=== PATIENT | female | born 1945 | race Caucasian/White ===

== ENCOUNTER 2019-11-22 14:51 | Outpatient (CLI) | payer MEDICARE, SELFPAY ==
--- NOTE | ~2019-11-22 | MM_ITS ---
EXAMINATION: MM screening philippe BI w amelia HISTORY: Screening mammogram TECHNIQUE: Craniocaudal and mediolateral oblique 3-D tomosynthesis images were obtained and synthetic 2-D images were generated. CAD analysis was submitted and interpreted. COMPARISON: No prior mammogram is available for comparison at this institution. BREAST PARENCHYMAL COMPOSITION: The breasts are almost entirely fatty. FINDINGS: Scattered benign-appearing calcifications are present. There is no evidence of suspicious m ass, calcification, or architectural distortion to suggest malignancy in either breast. IMPRESSION: 1. No mammographic evidence of malignancy. 2. Recommend routine screening mammography in one year. BI-RADS Category 2: Benign finding(s). Reviewed, dictated and finalized at location A. [place] [employer]
== END 2019-11-22 14:52 | disposition home or self-care (01) ==
LOC: ANHIMG 14:54
PROVIDERS: PCP Internal Medicine; Visit Provider Internal Medicine
DX: Z12.31 Encounter for screening mammogram for malignant neoplasm of breast (principal)
CPT/HCPCS: 77063; 77067

== ENCOUNTER 2019-11-22 14:54 | Outpatient (CLI) | payer MEDICARE, SELFPAY ==
--- NOTE | ~2019-11-22 | DEXA_ITS ---
Bone Density Report Name: BREEZY MUHAMMAD Age: 74 Sex: Female Ethnicity: White Date of : 1945 Indication: postmenopausal; Referring Provider: YAYA LIVINGSTON Study: Bone densitometry was performed. Exam Date: November 22, 2019 Accession number: [id number] Bone Density: Region BMD T-score Z-score Classification AP Spine (L1-L4) 0.865 -1.7 0.6 Osteopenia Femoral Neck (Left) 0.592 -2.3 -0.4 Osteopenia Total Hip (Left) 0.764 -1.5 0.2 Osteopenia Total Hip Bilateral Avg 0.790 -1.3 0.4 Osteopenia Femoral Neck (Right) 0.635 -1.9 0.0 Osteopenia Total Hip (Right) 0.815 -1.0 0.6 Normal World Health Organization criteria for BMD impression classify patients as: Normal (T-score at or above -1.0), Osteopenia (T-score between -1.0 and -2.5), or Osteoporosis (T-score at or below -2.5). 10-year Fracture Risk(1): Major Osteoporotic Fracture 13% Hip Fracture 3.0% Reported Risk Factors: [place] (), Neck BMD=0.592, BMI=35.1 (1) FRAX(R) Version 3.08. Fracture probability calculated for an untreated patient. Fracture probability may be lower if the patient has received treatment. Clinical Information Provided by Patient: Has used the following medications: Vitamin D, Calcium Patient maximum height was 62 Menopause Age: 42 No regular weight bearing exercise Drinks caffeinated beverages Onset of menses at age 14 Number of children 0 Impression: The patient has low bone mass, based on the Left Femoral Neck T-score. The patient has an estimated ten-year risk of hip fracture of 3% and an estimated ten-year risk of major fracture of 13%, based on the WHO FRAX algorithm. Discussion: BONE DENSITY IS LOW AT ONE OR MORE SKELETAL SITES. THE PATIENT'S BMD AND CLINICAL RISK FACTORS CONTRIBUTE TO THIS PATIENT'S INCREASED RISK OF FRACTURE. This patient's lowest T-score is low at one or more skeletal sites. It meets the World Health Organization's (WHO) criteria for ?low bone mass? (T-score between -1.0 and -2.5). The patient's 10-year risk of hip fracture as calculated by FRAX exceeds the threshold where pharmacological therapy is recommended by the National Osteoporosis Foundation (NOF). However, all treatment decisions require clinical judgment and consideration of individual patient factors, including patient preferences, comorbidities, previous drug use, risk factors not captured in the FRAX model (e.g., frailty, falls, vitamin D deficiency, increased bone turnover, interval significant decline in bone density) and possible under or overestimation of fracture risk by FRAX. The patient should follow a healthful lifestyle (good nutrition with adequate calcium and vitamin D, and appropriate weight-bearing exercise). Follow-Up: Consider a repeat BMD and Vertebral Fracture Assessment (VFA) exam in 2 years or sooner if
== END 2019-11-22 14:55 | disposition home or self-care (01) ==
LOC: ANHIMG 14:55
PROVIDERS: PCP Internal Medicine; Visit Provider Internal Medicine
DX: Z12.31 Encounter for screening mammogram for malignant neoplasm of breast (principal); Z78.0 Asymptomatic menopausal state; M85.89 Other specified disorders of bone density and structure, multiple sites
CPT/HCPCS: 77063; 77067; 77080

== ENCOUNTER 2020-03-30 13:28 | Outpatient (CLI) | payer MEDICARE, SELFPAY ==
--- NOTE | ~2020-03-30 | XR_ITS ---
EXAMINATION: XR lumbar spine 2-3V DATE: 03/30/2020 13:58 INDICATION: Chronic low back pain TECHNIQUE: Anteroposterior and lateral views of the lumbar spine, and cone-down lateral view of the l umbosacral junction were obtained. COMPARISON: None. FINDINGS: 5 mm anterolisthesis L4 on L5. Vertebral body heights are normal. Mild disc height loss at L4-L5 and L5-S1. Prominent anterior osteophytes at T10-T11 and T11-T12. Moderate to severe bilateral lower lumb ar facet osteoarthritis. Sacral arches appear intact. Atherosclerotic abdominal aorta. IMPRESSION: 1. Moderate lower lumbar spondylosis including 5 mm anterolisthesis L4 on L5. Reviewed, dictated and finalized at location A.
--- NOTE | ~2020-03-30 | XR_ITS ---
EXAMINATION: XR barium swallow modified DATE: 03/30/2020 14:23 INDICATION: Dysphagia. TECHNIQUE: Modified barium esophagram was performed by myself to administered fluoroscopy, in conjun ction with speech pathologist who administered barium in varying consistencies as per speech patholog ist documentation. This was recorded on tape. A single fluoroscopic spot image was recorded. The DAP for this procedure was 0.978 Gycm2. Fluoroscopy exposure time was 1.2 minutes. FINDINGS: Oral stage: Adequate function. Pharyngeal phase: Adequate function. Laryngeal penetration: None. Aspiration: None. Laryngeal sensitivity: Present. IMPRESSION: Normal modified esophagram exam. Please refer to speech pathologist findings and specifi c feeding recommendations. Reviewed, dictated and finalized at location A. IMPRESSION: Normal modified esophagram exam. Please refer to speech pathologis t findings and specific feeding recommendations.
--- NOTE | 2020-03-30 17:40 | STOPEVAL ---
MODIFIED BARIUM SWALLOW EVALUATION: Thank you for referring Gisela Snider to [facility]. Attending Provider: Lupe Louise, Referring Provider: KEVIN Outpatient Evaluation Start: 03/30/20 17:33 Freq: Status: Active Protocol: Document 03/30/20 13:45 BECHERERT (Rec: 03/30/20 17:40 BECHERERT [id number]) Therapy Assessment Status Assessment Status Assessment Status Evaluation Outpatient Past Medical History Past Medical History Source of Past Medical History Patient Neurological History Hx Meningitis Yes: 1976 Hx Migraine Yes: past hx Cardiovascular History Hx Cardiac Catheterization Yes Hx Cardiac Surgery Yes: aortic valve replacement, and enlargement with biovalve Respiratory History Hx Asthma Yes Hx Sleep Apnea Yes: does not use CPAP Gastrointestinal History Hx Gastric Bypass Surgery Yes Hx Gastrointestinal Bleed Yes: unknown cause Musculoskeletal History Hx Joint Replacement Yes: left knee Hematological History Hx Anemia Yes: iron deficiency Endocrine History Hx Endocrine Disorders No Significant History HEENT History Hx Sinus Problems Yes Integumentary History Hx Skin Disorders No Significant History Reproductive History Hx Post Menopausal Yes Psychosocial History Hx Depression Yes Evaluation Information Problem Diagnosis dysphagia Onset 2 months ago Subjective Information I have trouble swallowing Query Text:As Reported By Patient/ meat and dry food. Family Prior Level of Function Prior Swallow Level Prior Intake Method Oral Prior Diet Regular (Level 7 Diet) Prior Liquid Consistency Thin (Level 0 Diet) Pain Assessment Timing of Pain Assessment Timing of Pain Assessment Assessment Self Report Self Report Pain Level 0 Pain Scale Pain Scale Used Numeric (1 - 10) Pain Score Pain Score 0: Self Report Modified Barium Swallow Evaluation Recent Swallowing History Reports Dysphagia Yes Duration of Dysphagia 2 months Other Factors Impacting Dysphagia None History of Pneumonia No: no recent Reported Difficult Consistencies Solids Intake Method Prior to Swallow Oral Evaluation Diet Prior to Swallow Evaluation Regular, Level 7 Liquid Consistency Prior to Swallow Thin (0) Evaluation Consistency Thin Uncontrolled 1 Other Amount cup and straw Oral Preparatory Symptoms None Oral Phase Symptoms None Pharyngeal Phase Symptoms None Severity of Vallecular Residue N
== END 2020-03-30 13:29 | disposition home or self-care (01) ==
PROVIDERS: PCP Internal Medicine; Visit Provider Internal Medicine
DX: R13.10 Dysphagia, unspecified (principal); M47.896 Other spondylosis, lumbar region
CPT/HCPCS: 72100; 92611

== ENCOUNTER 2020-04-03 09:58 | Outpatient (CLI) | payer MEDICARE, SELFPAY ==
[2020-04-03 10:14] LABS: Basophils Absolute Auto 0.1 K/mm3 (0.0-0.1); Basophils Percent Auto 0.6 % (0.2-1.2); Eosinophils Absolute Auto 0.2 K/mm3 (0-0.3); Eosinophils Percent Auto 2.9 % (0-4.4); Hematocrit 35.8 % (37.0-47.0); Hemoglobin 11.7 g/dL (12.0-15.0); Immature Granulocyte Absolute 0.03 K/mm3 (0.00-0.031); Immature Granulocyte Percent A 0.4 % (0-0.5); Lymphocytes Absolute Auto 1.76 K/mm3 (0.9-3.2); Lymphocytes Percent Auto 21.1 % (18.3-44.2); Mean Corpuscular HGB Conc 32.7 g/dl (32-36); Mean Corpuscular Hemoglobin 30.3 pg (26-34); Mean Corpuscular Volume 92.7 fl (80-100); Mean Platelet Volume 8.9 fl (7.4-10.4); Monocytes Absolute Auto 0.9 K/mm3 (0.1-0.6); Monocytes Percent Auto 10.3 % (2.6-8.5); Neutrophils Absolute Auto 5.4 K/mm3 (1.3-6.7); Neutrophils Percent Auto 64.7 % (45.5-73.1); Platelet Count Result 369 k/mm3 (150-375); Red Blood Count 3.86 M/mm3 (4.2-5.4); Red Cell Distribution Width 12.7 % (11.5-14.5); White Blood Count 8.4 K/mm3 (4.5-10.0)
[2020-04-03 11:16] LABS: Alanine Aminotransferase 17 U/L (4-35); Albumin Level 3.6 g/dL (3.5-5.1); Alkaline Phosphatase 96 U/L (38-126); Aspartate Amino Transferase 24 U/L (14-36); Bilirubin,Total 0.4 mg/dL (0.2-1.3); Blood Urea Nitrogen 18 mg/dL (7-17); CRP < 0.5 mg/dL (<1.0); Carbon Dioxide 25 mmol/L (22-30); Chloride 105 mmol/L (98-107); Estimated Glomerular Filt Rate > 60; Glucose 113 mg/dL (65-105); Potassium 4.3 mmol/L (3.4-5.0); Sodium 136 mmol/L (137-145)
[2020-04-03 11:26] LABS: Erythrocyte Sedimentation Rate 21 mm/hr (0-20)
== END 2020-04-03 09:59 | disposition home or self-care (01) ==
LOC: ANHLAB 10:00
PROVIDERS: PCP Internal Medicine; Visit Provider Internal Medicine Hematology & Oncology
DX: D50.9 Iron deficiency anemia, unspecified (principal)
CPT/HCPCS: 36415; 80053; 85025; 85652; 86140

== ENCOUNTER 2020-04-13 00:06 | Outpatient (CLI) | payer MEDICARE, BC, SELFPAY ==
[2020-04-13 18:54] LABS: SARS-CoV-2 RNA PCR Negative
== END 2020-04-13 00:07 | disposition home or self-care (01) ==
LOC: ANHCOVIDDT 00:06
PROVIDERS: PCP Internal Medicine; Visit Provider Internal Medicine Gastroenterology
DX: Z01.812 Encounter for preprocedural laboratory examination (principal); Z11.59 Encounter for screening for other viral diseases
CPT/HCPCS: 87635; C9803; U0003

== ENCOUNTER 2020-04-15 02:17 | Day surgery (SDC) | payer MEDICARE, BC, SELFPAY ==
[2020-04-08 12:43] VITALS: BMI 34.2
[2020-04-15 08:20] VITALS: BP 132/56; PULSE 79; RESP 15; TEMP 36.6; O2SAT 100; BMI 34.2
--- NOTE | 2020-04-15 08:41 | P.CONGI_ITS ---
Assessment and Plan Assessment and plan (1) Dysphagia: Code(s): R13.10 - Dysphagia, unspecified Status: Acute Assessment and Plan: Plan is for EGD to assess reason for her dysphagia . Suggest esophageal narr owing on the basis of acid reflux. Further recommendations will be given after endoscopy. Hopefully dilatation to be performed. (2) GERD (gastroesophageal reflux disease): Code(s): K21.9 - Gastro-esophageal reflux disease without esophagitis Status: Acute Assessment and Plan: Patient has chronic acid reflux. Ongoing heartburn. Poorly responsive to pantoprazole 40 mg p.o. once daily. Plan is to increase dose of pantoprazole to b.i.d. dosing. Further recommendations will be given after endoscopy. GI Consult Note Consult date/time: 04/15/20 08:41 HPI: Gisela Snider is a 75 year old female Seen in evaluation at the request of Dr. Lupe Louise. patient reports long history of GE reflux disease poorly responsive to current medications. She currently takes pantoprazole 40 mg p.o. daily. Over the last 3 months she has had increasing difficulty swallowing. Solids more so than liquids. She states that food will stop in the mid substernal portion of the chest. She denies any weight loss or bleeding. Pain is primarily related to burning and acid reflux. Her family history is noncontributory. Review of Systems Review of Systems: All systems reviewed & are unremarkable except as noted in HPI and below Meds Home Medications and Allergies Home Medications Medication Instructions Recorded Confirmed Type ascorbic acid (vitamin C) 1 g PO DAILY 08/22/19 04/08/20 History aspirin 325 mg PO DAILY 08/22/19 04/08/20 History ferrous sulfate 325 mg PO BID 08/22/19 04/08/20 History lisinopril 10 mg PO DAILY 08/22/19 04/08/20 History ropinirole [Requip] 0.25 mg PO BID 08/22/19 04/08/20 History duloxetine 30 mg PO DAILY 04/08/20 04/08/20 History duloxetine 60 mg PO DAILY 04/08/20 04/08/20 History fluticasone propionate [Flonase 1 spray INTRANASAL BID 04/08/20 04/08/20 History Allergy Relief] hydrocodone-acetaminophen 0.5 tablet PO Q8H PRN 04/08/20 04/08/20 History montelukast 10 mg PO DAILY 04/08/20 04/08/20 History rosuvastatin 10 mg PO DAILY 04/08/20 04/08/20 History Allergies Allergy/AdvReac Type Severity Reaction Status Date / Time morphine Allergy Unknown Other Verified 04/15/20 08:19 oxycodone Allergy Unknown Other Verified 04/15/20 08:19 Sulfa (Sulfonamide Allergy Unknown Swelling Verified 04/15/20 08:19 Antibiotics) codeine AdvReac Unknown Other Verified 04/15/20 08:19 Vital Signs Vital Signs - 24 hr 04/15/20 08:20 Temperature 36.6 C Pulse Rate 79 Respiratory Rate 15 Blood Pressure 132/56 L Pulse Oximetry 100 Exam Narrative: Exam Narrative: Physical exam reveals patient to be alert. Vital signs stable. HEENT exam unremarkable. Lungs are clear to auscultation and percussion. Heart is without murmur or extra sounds. Abdominal exam bowel sounds present soft nontender with no hepatosplenomegaly. Digital external rectal exam is deferred at this time.
[2020-04-15] MEDS: LACTATED RINGERS 1,000 ML 150 ML IV CONT (08:58)
[2020-04-15] MEDS: GENTAMICIN 80MG/SOD CHL 50 ML 80 MG/50 ML BAG 100 MG IVPB (08:58)
[2020-04-15] MEDS: AMPICILLIN 2 GM/NS 100 ML 2 GM/100 ML BAG IVPB (09:25)
--- NOTE | 2020-04-15 09:30 | WPDANESEPPF ---
Anes - Initial Pre Proc Eval Procedure: Operation Date: 04/15/20 09:30 Proposed Procedures p Esophagogastroduodenoscopy - Tawanda Banuelos MD Date/Time: 04/15/20 09:30 Surgeon: Tawanda Banuelos MD Pre Op Diagnosis: Dysphagia Patient Data Age: 75 Gender: F Height: 5 ft 2 in Weight: 84.8 kg Last Vital Signs Temp 97.8 F 04/15/20 08:20 Pulse 79 04/15/20 08:20 Resp 15 04/15/20 08:20 BP 132/56 L 04/15/20 08:20 Pulse Ox 100 04/15/20 08:20 Allergies Allergy/AdvReac Type Severity Reaction Status Date / Time morphine Allergy Unknown Other Verified 04/15/20 08:19 oxycodone Allergy Unknown Other Verified 04/15/20 08:19 Sulfa (Sulfonamide Allergy Unknown Swelling Verified 04/15/20 08:19 Antibiotics) codeine AdvReac Unknown Other Verified 04/15/20 08:19 Home Medications Medication Instructions Recorded Confirmed Type ascorbic acid (vitamin C) 1 g PO DAILY 08/22/19 04/08/20 History aspirin 325 mg PO DAILY 08/22/19 04/08/20 History ferrous sulfate 325 mg PO BID 08/22/19 04/08/20 History lisinopril 10 mg PO DAILY 08/22/19 04/08/20 History ropinirole [Requip] 0.25 mg PO BID 08/22/19 04/08/20 History duloxetine 30 mg PO DAILY 04/08/20 04/08/20 History duloxetine 60 mg PO DAILY 04/08/20 04/08/20 History fluticasone propionate [Flonase 1 spray INTRANASAL BID 04/08/20 04/08/20 History Allergy Relief] hydrocodone-acetaminophen 0.5 tablet PO Q8H PRN 04/08/20 04/08/20 History montelukast 10 mg PO DAILY 04/08/20 04/08/20 History rosuvastatin 10 mg PO DAILY 04/08/20 04/08/20 History Patient hx anesthesia problems: none Family hx anesthesia problems: none PMFSH Past Medical History Medical History (Updated 04/15/20 @ 09:30 by Ethan Jenkins MD) Anemia Asthma CAD (coronary artery disease) Migraine SARKIS (obstructive sleep apnea) Surgical History Surgical History (Updated 04/15/20 @ 09:30 by Ethan Jenkins MD) H/O aortic valve replacement with porcine valve Anes - Eval Final PreProcedure Day of Procedure 04/15/20 09:30 Patient weight: obese Heart: regular rate and rhythm Lungs: clear to auscultation Airway: Mallampati scale class III Neurological: alert and oriented Last oral intake: >/= 8 hours ASA classification: III Emergent: no Anesthetic plan: proceed Anesthesia type and monitoring: general GIVS and standard monitoring Informed Consent: The patient's anesthetic plan and its attendant risks and benefits were discussed with the patient/family/POA. Questions were solicited and answers provided to the satisfaction of the patient/family/POA.
[2020-04-15 09:45] VITALS: BP 142/65; PULSE 100; RESP 16; O2SAT 97
[2020-04-15 09:55] VITALS: BP 128/70; PULSE 76; RESP 16; O2SAT 97
[2020-04-15 10:05] VITALS: BP 133/61; PULSE 76; RESP 24; O2SAT 98
== END 2020-04-15 10:37 | disposition home or self-care (01) ==
PROVIDERS: PCP Internal Medicine; Visit Provider Internal Medicine Gastroenterology
PROC: 0DJ08ZZ Inspection of Upper Intestinal Tract, Via Natural or Artificial Opening Endoscopic (ICD-10-PCS; CPT 43235; principal; 2020-04-15 09:30)
DX: K22.2 Esophageal obstruction (principal); K21.0 Gastro-esophageal reflux disease with esophagitis; K44.9 Diaphragmatic hernia without obstruction or gangrene; I25.10 Atherosclerotic heart disease of native coronary artery without angina pectoris; J45.909 Unspecified asthma, uncomplicated; G47.33 Obstructive sleep apnea (adult) (pediatric); D64.9 Anemia, unspecified; Z95.3 Presence of xenogenic heart valve; Z79.82 Long term (current) use of aspirin; E66.9 Obesity, unspecified; Z68.34 Body mass index [BMI] 34.0-34.9, adult
CPT/HCPCS: 43450; 43235; J0290; J1580; J2704; J7120

== ENCOUNTER 2020-06-01 16:34 | Outpatient (CLI) | payer MEDICARE, BC, SELFPAY ==
[2020-06-01 17:16] LABS: Basophils Percent Auto 0.3 % (0.2-1.2); Eosinophils Absolute Auto 0.1 K/mm3 (0-0.3); Eosinophils Percent Auto 0.5 % (0-4.4); Hematocrit 39.5 % (37.0-47.0); Hemoglobin 13.2 g/dL (12.0-15.0); Immature Granulocyte Absolute 0.05 K/mm3 (0.00-0.031); Immature Granulocyte Percent A 0.3 % (0-0.5); Lymphocytes Absolute Auto 2.15 K/mm3 (0.9-3.2); Lymphocytes Percent Auto 13.9 % (18.3-44.2); Mean Corpuscular HGB Conc 33.4 g/dl (32-36); Mean Corpuscular Hemoglobin 29.7 pg (26-34); Mean Platelet Volume 9.2 fl (7.4-10.4); Monocytes Absolute Auto 1.7 K/mm3 (0.1-0.6); Monocytes Percent Auto 10.7 % (2.6-8.5); Neutrophils Absolute Auto 11.5 K/mm3 (1.3-6.7); Neutrophils Percent Auto 74.3 % (45.5-73.1); Platelet Count Result 383 k/mm3 (150-375); Red Blood Count 4.44 M/mm3 (4.2-5.4); Red Cell Distribution Width 12.3 % (11.5-14.5); White Blood Count 15.5 K/mm3 (4.5-10.0)
[2020-06-01 17:28] LABS: Alanine Aminotransferase 15 U/L (4-35); Albumin Level 4.1 g/dL (3.5-5.1); Alkaline Phosphatase 96 U/L (38-126); Amylase 51 U/L (30-110); Anion Gap 10 mmol/L (8-16); Aspartate Amino Transferase 22 U/L (14-36); Bilirubin,Total 0.5 mg/dL (0.2-1.3); Blood Urea Nitrogen 16 mg/dL (7-17); Calcium 9.3 mg/dL (8.4-10.2); Carbon Dioxide 24 mmol/L (22-30); Chloride 104 mmol/L (98-107); Estimated Glomerular Filt Rate > 60; Glucose 126 mg/dL (65-105); Lipase 35 U/L (23-300); Potassium 3.4 mmol/L (3.4-5.0); Sodium 138 mmol/L (137-145)
== END 2020-06-01 16:35 | disposition home or self-care (01) ==
PROVIDERS: PCP Internal Medicine; Visit Provider Internal Medicine
DX: K62.5 Hemorrhage of anus and rectum (principal); R11.10 Vomiting, unspecified; R19.7 Diarrhea, unspecified
CPT/HCPCS: 36415; 80053; 82150; 83690; 85025

== ENCOUNTER 2020-06-02 09:28 | Outpatient (CLI) | payer MEDICARE, BC, SELFPAY ==
--- NOTE | ~2020-06-02 | CT_ITS ---
EXAMINATION: CT abdomen pelvis w con EXAM DATE: 06/02/2020 10:02 INDICATION: Vomiting, diarrhea, hemorrhage from anus. TECHNIQUE: Spiral CT of the abdomen and pelvis was performed following intravenous injection of 100 m L Omnipaque 350. Axial, coronal and sagittal images were reviewed. The dose-length product (DLP) fo r this examination was 1047.32 mGy-cm. The exposure was tailored according to patient size (auto mA exposure control), and iterative reconstruction (ASIR) was used as additional dose reduction techniqu e. There is no prior study for comparison. FINDINGS: The liver, spleen, adrenal glands and pancreas are unremarkable. Gallbladder is unremarkab le. No biliary obstruction. Portal and splenic veins are patent. Kidneys enhance symmetrically. T here is no hydronephrosis. The uterus is unremarkable. The bladder is collapsed at time of imagin g limiting evaluation. There is no retroperitoneal or pelvic lymphadenopathy. There is mild to mod erate scattered arteriosclerotic disease. The appendix is normal. There is small to moderate-sized gastroesophageal hiatal hernia. There is de scending colonic wall edema, more likely colitis than acute diverticulitis given its scope. Patient d oes have scattered sigmoid predominant diverticulosis. No pneumatosis. There is no adjacent inflamma tory change to suggest diverticulitis. No free intraperitoneal gas. Sternotomy wires, lower lungs have several breaks.. Borderline cardiac enlargement. The lung bases are unremarkable. The bones ar e unremarkable. IMPRESSION: 1. Mild descending colonic wall edema, probably colitis. Reviewed, dictated and finalized at location B.
== END 2020-06-02 09:29 | disposition home or self-care (01) ==
PROVIDERS: PCP Internal Medicine; Visit Provider Internal Medicine
DX: R11.10 Vomiting, unspecified (principal); R19.7 Diarrhea, unspecified; K62.5 Hemorrhage of anus and rectum
CPT/HCPCS: 74177; Q9967

== ENCOUNTER 2020-08-19 06:56 | Outpatient (CLI) | payer MEDICARE, BC, SELFPAY ==
--- NOTE | ~2020-08-19 | MR_ITS ---
EXAMINATION: MR hip LT wo con DATE: 08/19/2020 08:01 INDICATION: Left hip pain TECHNIQUE: Magnetic resonance imaging (MRI) of the left hip was performed without intravenous contra st. Sequences included full-field axial PD-weighted FS FSE and T1-weighted FSE, coronal of the pelvis with PD-weighted FS FSE, small field of view of the left hip with coronal PD weighted FS FSE. COMPARISON: CT abdomen and pelvis dated 06/02/2020 FINDINGS: Moderate to severe motion artifact on the obtained sequences. The small field of view images essentia lly nondiagnostic. Patient terminated the study prior to completion of the remaining small field-of-v iew images. Alignment is normal. Nonspecific marrow edema along the superolateral aspect of the left acetabulum. Otherwise normal marrow signal with no fracture, avascular necrosis or pathologic marrow replacing pr ocess. Small region of absent signal corresponding to cystic change with vacuum phenomena at the righ t posterior iliac spine on prior CT. No joint effusions or other abnormal fluid collections. Normal a nd symmetric muscle bulk and signal in the pelvis and visualized proximal thighs. The uterus is not i dentified and has likely been surgically resected. There are scattered diverticula along the sigmoid colon. No pathologically enlarged pelvic/inguinal lymphadenopathy. IMPRESSION: 1. Very limited study due to significant motion artifact and early termination of the study at the bipin tient's request. 2. Nonspecific marrow edema at the superolateral aspect of the left acetabulum. Reviewed, dictated and finalized at location A. [employer] IMPRESSION: 1. Very limited study due to significant motion artifact and early termination of the study at the patient's request. 2. Nonspecific marrow edema at the superolateral aspect of the left acetabulum.
== END 2020-08-19 06:57 | disposition home or self-care (01) ==
PROVIDERS: PCP Internal Medicine; Visit Provider Nurse Practitioner Family
DX: M25.552 Pain in left hip (principal)
CPT/HCPCS: 73721

== ENCOUNTER 2020-09-13 09:36 | Outpatient (CLI) | payer MEDICARE, BC, SELFPAY ==
--- NOTE | ~2020-09-13 | MR_ITS ---
EXAMINATION: MR hip LT wo con DATE: 09/13/2020 11:09 INDICATION: Left hip pain. TECHNIQUE: Magnetic resonance imaging (MRI) of the left hip was performed without intravenous contras t. Sequences included axial and coronal PD-weighted FS FSE and axial T1-weighted FSE of the pelvis. S equences of the hip included 2D FIESTA, T1-weighted fast GRE, and axial, coronal, and sagittal PD-vamsi ghted FS FSE. COMPARISON: Left hip MRI 08/19/20, CT abdomen and pelvis 06/02/2020 FINDINGS: Bones/cartilage: Bone alignment is normal. No fracture. There is moderate osteoarthritis of the hips. Small field-of-v iew images of left hip demonstrates deep partial thickness cartilage loss superiorly and posteriorly. There is mild osteoarthritis of the sacroiliac joints. Labrum: There is a tear of the left acetabular labrum. Fluid: There are small bilateral hip joint effusions. Soft tissues: There is a partial tear of right hamstring origin. There is moderate tendinopathy of left hamstring o rigin. The iliopsoas tendons are normal. The gluteal tendons are normal bilaterally. IMPRESSION: 1. Moderate osteoarthritis of the hips. 2. Small bilateral hip joint effusions. Reviewed, dictated and finalized at location A. S [employer]ARMWORK[employer]
== END 2020-09-13 09:37 | disposition home or self-care (01) ==
PROVIDERS: PCP Internal Medicine; Visit Provider Nurse Practitioner Family
DX: S73.102A Unspecified sprain of left hip, initial encounter (principal); M16.0 Bilateral primary osteoarthritis of hip; M25.452 Effusion, left hip
CPT/HCPCS: 73721

== ENCOUNTER 2020-11-19 11:18 | Outpatient (CLI) | payer MEDICARE, BC, SELFPAY ==
[2020-11-19 11:50] LABS: Basophils Absolute Auto 0.1 K/mm3 (0.0-0.1); Basophils Percent Auto 0.4 % (0.2-1.2); Eosinophils Absolute Auto 0.2 K/mm3 (0-0.3); Eosinophils Percent Auto 1.3 % (0-4.4); Hematocrit 33.9 % (37.0-47.0); Hemoglobin 10.4 g/dL (12.0-15.0); Immature Granulocyte Absolute 0.05 K/mm3 (0.00-0.031); Immature Granulocyte Percent A 0.4 % (0-0.5); Lymphocytes Absolute Auto 1.89 K/mm3 (0.9-3.2); Lymphocytes Percent Auto 14.4 % (18.3-44.2); Mean Corpuscular HGB Conc 30.7 g/dl (32-36); Mean Corpuscular Hemoglobin 26.5 pg (26-34); Mean Corpuscular Volume 86.3 fl (80-100); Mean Platelet Volume 8.8 fl (7.4-10.4); Monocytes Absolute Auto 1.7 K/mm3 (0.1-0.6); Monocytes Percent Auto 12.6 % (2.6-8.5); Neutrophils Absolute Auto 9.3 K/mm3 (1.3-6.7); Neutrophils Percent Auto 70.9 % (45.5-73.1); Platelet Count Result 480 k/mm3 (150-375); Red Blood Count 3.93 M/mm3 (4.2-5.4); Red Cell Distribution Width 16.3 % (11.5-14.5); White Blood Count 13.1 K/mm3 (4.5-10.0)
[2020-11-19 17:12] LABS: Iron 60 ug/dL (37-170)
[2020-11-19 17:17] LABS: Percent Iron Saturation 16 % (20-50)
[2020-11-19 19:30] LABS: Alanine Aminotransferase 12 U/L (4-35); Albumin Level 3.6 g/dL (3.5-5.1); Alkaline Phosphatase 105 U/L (38-126); Anion Gap 7 mmol/L (8-16); Aspartate Amino Transferase 19 U/L (14-36); Bilirubin,Total 0.2 mg/dL (0.2-1.3); Blood Urea Nitrogen 16 mg/dL (7-17); Carbon Dioxide 24 mmol/L (22-30); Chloride 105 mmol/L (98-107); Estimated Glomerular Filt Rate > 60; Glucose 100 mg/dL (65-105); Potassium 4.8 mmol/L (3.4-5.0); Sodium 136 mmol/L (137-145)
== END 2020-11-19 11:19 | disposition home or self-care (01) ==
LOC: ANHLAB 11:20
PROVIDERS: PCP Internal Medicine; Visit Provider Internal Medicine Hematology & Oncology
DX: D59.9 Acquired hemolytic anemia, unspecified (principal); D50.9 Iron deficiency anemia, unspecified
CPT/HCPCS: 36415; 80053; 82728; 83540; 83550; 85025

== ENCOUNTER 2021-01-11 09:22 | Outpatient (CLI) | payer MEDICARE, SELFPAY ==
--- NOTE | 2021-01-29 14:14 | WPDHOMESLEEP ---
Sleep Study - Home Unattended Date of Study: 01/11/21 Ordering Provider: Lupe Louise, Interpreting Provider: Brittanie Robles MD Home Sleep Study Type: Apnea Link Air Height: 1.57 m Weight: 83.915 kg Body Mass Index: 33.8 Neck Circumference (inches): 15 [place]: 13 Reason for Sleep Study Hypersomnia; fragmented sleep Sleep History Gisela Snider is a 75 year old female with a history of sleep apnea, has had 2 sleep studies in the past but has never felt that using PAP therapy helped her and it was not worth the effort. She is not using it currently. She wakes up throughout the night. During the last 9 months, she has become excessively sleepy, nodding off even while talking to people. This is scary for her. Her sleep has been restless for over 20 years. She has nighttime wakefulness. Over the last few weeks, she has been sleeping soundly with only 1 bathroom break and longer than usual total sleep, up to 8 hours. She constantly awakens at night with heartburn, belching or coughing. She has a history of heartburn and takes medications. She occasionally snores, and occasionally it is loud enough that others complain about it. She does not awaken from sleep feeling short of breath. She occasionally has trouble sleeping if she has a cold. She does not wake up gasping for breath at night. She rarely has breathing problems at night observed by others. She rarely sweats excessively at night or notice her heart pounding or beating irregularly at night. She occasionally falls asleep during the day, occasionally involuntarily, never while driving. She does not have loss of muscle tone with strong emotion. She does not feel paralyzed on waking or falling asleep. She occasionally has vivid dreamlike scenes upon awakening or falling asleep. She never feels afraid to go to sleep. She occasionally has nightmares. She rarely remembers her dreams. She frequently has racing thoughts, feelings of sadness, depression, and anxiety. She frequently has muscular tension. She frequently notices parts of body jerking and she frequently kicks at night. She frequently has crawling and aching feelings in her legs. She frequently has leg pain at night. She does not have morning jaw pain. Normal bedtime is between 10:30 and 11:00 p.m. falling asleep within 15-20 minutes. She currently wakes up about twice at night. In the past, she has had periods of time with up to 6 episodes of waking at night. When she awakens, she is able to return to sleep within 2 - 10 minutes. She sometimes wakes to urinate, then rolls around in bed, stretches, occasionally walks around the house before returning to sleep. She wakes the morning between 6:00 and 7:00 a.m.. Her weekend schedule is the same. She does take naps. A short nap of 10-15 minutes may be refreshing. She feels better in the afternoon compared to other times of day. Habits: Smoked tobacco years ago. Caffeine 3 beverages a day. No alcohol or recreational drugs. [facility] Past Medical History Medical History (Updated 01/29/21 @ 15:10 by Brittanie Robles MD) Anemia Asthma CAD (coronary artery disease) GERD (gastroesophageal reflux disease) Migraine SARKIS (obstructive sleep apnea) Restless leg syndrome Surgical History Surgical History (Updated 01/29/21 @ 15:03 by Brittanie Robles MD) H/O aortic valve replacement with porcine valve and CABG; 01/08/2019 re-do sternotomy/ tissue rule placement, autologous pericardial patch repair, anterior mitral leaflet, left aortic sinus annulus surgery complicated by pneumonia, renal insufficiency blood loss History of knee replacement Left knee 2012 Family History Family History Father Malignant neoplasm of prostate Mother Hypertension Sibling Hypertension Social History Social History (Updated 01/29/21 @ 15:10 by Brittanie Robles MD) Smoking status: Former smoker Alcohol intake: never
[2021-01-29 14:17] VITALS: BMI 33.8
== END 2021-01-11 09:23 | disposition home or self-care (01) ==
LOC: ANHCSM 09:23
PROVIDERS: PCP Internal Medicine; Visit Provider Internal Medicine
DX: G47.33 Obstructive sleep apnea (adult) (pediatric) (principal)
CPT/HCPCS: 95806

== ENCOUNTER 2021-03-08 10:23 | Outpatient (CLI) | payer MEDICARE, SELFPAY ==
[2021-03-08 10:47] LABS: Basophils Absolute Auto 0.1 K/mm3 (0.0-0.1); Basophils Percent Auto 0.6 % (0.2-1.2); Eosinophils Absolute Auto 0.3 K/mm3 (0-0.3); Eosinophils Percent Auto 2.9 % (0-4.4); Hematocrit 38.5 % (37.0-47.0); Hemoglobin 12.6 g/dL (12.0-15.0); Immature Granulocyte Absolute 0.02 K/mm3 (0.00-0.031); Immature Granulocyte Percent A 0.2 % (0-0.5); Lymphocytes Absolute Auto 1.95 K/mm3 (0.9-3.2); Lymphocytes Percent Auto 22.4 % (18.3-44.2); Mean Corpuscular HGB Conc 32.7 g/dl (32-36); Mean Corpuscular Volume 88.7 fl (80-100); Mean Platelet Volume 9.1 fl (7.4-10.4); Monocytes Percent Auto 11.1 % (2.6-8.5); Neutrophils Absolute Auto 5.5 K/mm3 (1.3-6.7); Neutrophils Percent Auto 62.8 % (45.5-73.1); Platelet Count Result 366 k/mm3 (150-375); Red Blood Count 4.34 M/mm3 (4.2-5.4); Red Cell Distribution Width 14.7 % (11.5-14.5); White Blood Count 8.7 K/mm3 (4.5-10.0)
[2021-03-08 12:50] LABS: Alanine Aminotransferase 14 U/L (4-35); Albumin Level 4.1 g/dL (3.5-5.1); Alkaline Phosphatase 119 U/L (38-126); Anion Gap 5 mmol/L (8-16); Aspartate Amino Transferase 19 U/L (14-36); Bilirubin,Total 0.3 mg/dL (0.2-1.3); Blood Urea Nitrogen 15 mg/dL (7-17); Calcium 9.7 mg/dL (8.4-10.2); Carbon Dioxide 25 mmol/L (22-30); Chloride 106 mmol/L (98-107); Estimated Glomerular Filt Rate > 60; Glucose 105 mg/dL (65-105); Potassium 4.4 mmol/L (3.4-5.0); Sodium 136 mmol/L (137-145)
[2021-03-08 12:55] LABS: Iron 60 ug/dL (37-170)
[2021-03-08 13:08] LABS: Percent Iron Saturation 18 % (20-50)
== END 2021-03-08 10:24 | disposition home or self-care (01) ==
PROVIDERS: PCP Internal Medicine; Visit Provider Internal Medicine Hematology & Oncology
DX: D59.9 Acquired hemolytic anemia, unspecified (principal); D50.9 Iron deficiency anemia, unspecified
CPT/HCPCS: 36415; 80053; 82728; 83540; 83550; 85025

== ENCOUNTER 2021-05-05 10:17 | Outpatient (CLI) | payer MEDICARE, SELFPAY ==
--- NOTE | ~2021-05-05 | MM_ITS ---
EXAMINATION: MM screening philippe BI w amelia HISTORY: Screening TECHNIQUE: Craniocaudal and mediolateral oblique 3-D tomosynthesis images were obtained and synthetic 2-D images were generated. CAD analysis was submitted and interpreted. COMPARISON: 11/22/2019 BREAST PARENCHYMAL COMPOSITION: There are scattered areas of fibroglandular density. FINDINGS: There is no evidence of suspicious mass, calcification, or architectural distortion to sugg est malignancy in either breast. There has been no suspicious interval change. IMPRESSION: 1. No mammographic evidence of malignancy. 2. Recommend routine screening mammography in one year. BI-RADS Category 1: Negative Reviewed, dictated and finalized at location A.
== END 2021-05-05 10:18 | disposition home or self-care (01) ==
LOC: ANHIMG 10:22
PROVIDERS: PCP Internal Medicine; Visit Provider Internal Medicine
DX: Z12.31 Encounter for screening mammogram for malignant neoplasm of breast (principal)
CPT/HCPCS: 77063; 77067

== ENCOUNTER → 2022-01-25 09:54 | Outpatient (CLI) | payer MEDICARE, SELFPAY ==
--- NOTE | ~2022-01-25 | XR_ITS ---
EXAMINATION: XR foot RT min 3V DATE: 01/25/2022 11:16 INDICATION: Pain in right ankle and joints of right foot. TECHNIQUE: 4 views of right foot were obtained. COMPARISON: None. FINDINGS: Bone alignment is normal. No fracture. There is mild osteoarthritis of the midfoot and many of the interphalangeal joints. There is moderate osteoarthritis of third and fourth distal interphal angeal joints and fifth proximal interphalangeal joint. There are enthesophytes at the posterior and plantar aspects of calcaneal tuberosity. There is soft tissue swelling at the Achilles attachment on calcaneus. IMPRESSION: 1. Polyarticular osteoarthritis. Reviewed, dictated and finalized at location A.
--- NOTE | ~2022-01-25 | XR_ITS ---
EXAMINATION: XR ankle RT min 3V DATE: 01/25/2022 11:15 INDICATION: Right ankle pain. TECHNIQUE: 4 views of right ankle were obtained. COMPARISON: None. FINDINGS: Bone alignment is normal. No fracture. There is moderate osteoarthritis of the ankle joint. There is mild midfoot osteoarthritis. There are enthesophytes at the posterior and plantar aspects o f calcaneal tuberosity. There is soft tissue swelling at the Achilles attachment to the calcaneus. IMPRESSION: 1. Polyarticular osteoarthritis. Reviewed, dictated and finalized at location A.
== END ==
PROVIDERS: PCP Internal Medicine; Visit Provider Internal Medicine
DX: M19.071 Primary osteoarthritis, right ankle and foot (principal)
CPT/HCPCS: 73610; 73630

== ENCOUNTER 2022-01-27 09:46 | Emergency (ER) | payer MEDICARE, SELFPAY ==
[2022-01-27 09:50] VITALS: BP 163/63; PULSE 100; RESP 16; TEMP 36.8; O2SAT 100
--- NOTE | 2022-01-27 09:56 | ED.LOWEXIN ---
HPI - Extremity Injury (Lower) General Chief Complaint: Extremity Injury, Lower Stated Complaint: RIGHT ANKLE PAIN Time Seen by Provider: 01/27/22 09:48 History of Present Illness HPI Narrative: 76-year-old female presents the emergency room with acute onset of swelling to her left foot. Patient states that she has been experiencing intermittent pain to her right foot and right ankle for several years, and had x-rays 2 days ago. Patient states that she noticed warmth and swelling of her foot and ankle yesterday. Patient denies any injury or trauma. Patient denies fever. Patient denies changes in her medications. Related Data Home Medications Medication Instructions Recorded Confirmed ascorbic acid (vitamin C) 1 g PO DAILY 08/22/19 04/08/20 aspirin 325 mg PO DAILY 08/22/19 04/08/20 ferrous sulfate 325 mg PO BID 08/22/19 04/08/20 lisinopril 10 mg PO DAILY 08/22/19 04/08/20 ropinirole [Requip] 0.25 mg PO BID 08/22/19 04/08/20 duloxetine 30 mg PO DAILY 04/08/20 04/08/20 duloxetine 60 mg PO DAILY 04/08/20 04/08/20 fluticasone propionate [Flonase 1 spray INTRANASAL BID 04/08/20 04/08/20 Allergy Relief] hydrocodone-acetaminophen 0.5 tablet PO Q8H PRN 04/08/20 04/08/20 montelukast 10 mg PO DAILY 04/08/20 04/08/20 rosuvastatin 10 mg PO DAILY 04/08/20 04/08/20 pantoprazole 40 mg PO BID 06/18/20 06/18/20 Allergies Allergy/AdvReac Type Severity Reaction Status Date / Time morphine Allergy Unknown Other Verified 01/27/22 09:56 oxycodone Allergy Unknown Other Verified 01/27/22 09:56 Sulfa (Sulfonamide Allergy Unknown Swelling Verified 01/27/22 09:56 Antibiotics) codeine AdvReac Unknown Other Verified 01/27/22 09:56 Review of Systems Review of Systems: CONSTITUTIONAL: Denies fever, chills, or sweats. EYES: Denies visual changes, redness, or discharge. ENT: Denies rhinorrhea, congestion, sore throat, or otalgia. CARDIOVASCULAR: Denies chest pain, palpitations, or edema. RESPIRATORY: Denies cough or dyspnea. GASTROINTESTINAL: Denies abdominal pain, nausea, vomiting, or diarrhea. GENITOURINARY: Denies dysuria or hematuria. SKIN: Denies rash or itching. MUSCULOSKELETAL: Reports right ankle and right foot pain NEUROLOGIC: Denies headache, numbness, dizziness, or weakness. PSYCHIATRIC: Denies anxiety or depression. [facility] Past Medical History Medical History Anemia Asthma CAD (coronary artery disease) GERD (gastroesophageal reflux disease) Migraine SARKIS (obstructive sleep apnea) Restless leg syndrome Surgical History Surgical History H/O aortic valve replacement with porcine valve and CABG; 01/08/2019 re-do sternotomy/ tissue rule placement, autologous pericardial patch repair, anterior mitral leaflet, left aortic sinus annulus surgery complicated by pneumonia, renal insufficiency blood loss History of knee replacement Left knee 2013 Family History Family History Father Malignant neoplasm of prostate Mother Hypertension Sibling Hypertension Social History Social History Smoking status: Former smoker Alcohol intake: never Exam Narrative: GENERAL: Well-appearing, well-nourished, and in no acute distress. HEAD: Normocephalic, atraumatic. EYES: PERRLA and EOMI. CHEST: Clear to auscultation. No respiratory distress. No wheezes rales or rhonchi HEART: Regular rate and rhythm. No murmur heard. Normal peripheral pulses. ABDOMEN: Soft, nontender, nondistended, normal active bowel sounds. EXTREMITIES: Right ankle/foot: Diffuse tenderness, swelling, warmth, and mild redness; no joint laxity, no obvious bony abnormalities/signs of injury SKIN: Warm, dry, no rash. NEURO: No focal deficits. Alert and oriented x3. PSYCH: Normal mood and affect. Course Vital Signs Vital signs: Vital Signs Tempera
[2022-01-27 10:13] LABS: Basophils Absolute Auto 0.1 K/mm3 (0.0-0.1); Basophils Percent Auto 0.3 % (0.2-1.2); Eosinophils Percent Auto 0.2 % (0-4.4); Hematocrit 40.8 % (37.0-47.0); Hemoglobin 13.5 g/dL (12.0-15.0); Immature Granulocyte Absolute 0.09 K/mm3 (0.00-0.031); Immature Granulocyte Percent A 0.6 % (0-0.5); Lymphocytes Percent Auto 11.8 % (18.3-44.2); Mean Corpuscular HGB Conc 33.1 g/dl (32-36); Mean Corpuscular Hemoglobin 30.9 pg (26-34); Mean Corpuscular Volume 93.4 fl (80-100); Mean Platelet Volume 8.8 fl (7.4-10.4); Monocytes Absolute Auto 1.4 K/mm3 (0.1-0.6); Monocytes Percent Auto 8.4 % (2.6-8.5); Neutrophils Absolute Auto 12.7 K/mm3 (1.3-6.7); Neutrophils Percent Auto 78.7 % (45.5-73.1); Platelet Count Result 335 k/mm3 (150-375); Red Blood Count 4.37 M/mm3 (4.2-5.4); Red Cell Distribution Width 12.3 % (11.5-14.5); White Blood Count 16.1 K/mm3 (4.5-10.0)
[2022-01-27 10:26] LABS: Alanine Aminotransferase 17 U/L (4-35); Albumin Level 4.3 g/dL (3.5-5.1); Alkaline Phosphatase 97 U/L (38-126); Anion Gap 9 mmol/L (8-16); Aspartate Amino Transferase 30 U/L (14-36); Bilirubin,Total 0.5 mg/dL (0.2-1.3); Blood Urea Nitrogen 15 mg/dL (7-17); Calcium 9.5 mg/dL (8.4-10.2); Carbon Dioxide 22 mmol/L (22-30); Chloride 103 mmol/L (98-107); Estimated CRCL calculation 102 ml/min; Estimated Glomerular Filt Rate > 60; Glucose 184 mg/dL (65-110); Potassium 3.7 mmol/L (3.4-5.0); Sodium 134 mmol/L (137-145)
== END 2022-01-27 10:50 | disposition home or self-care (01) ==
PROVIDERS: Emergency Provider Nurse Practitioner Family; PCP Internal Medicine
DX: M10.9 Gout, unspecified (principal); J45.909 Unspecified asthma, uncomplicated; I25.10 Atherosclerotic heart disease of native coronary artery without angina pectoris; K21.9 Gastro-esophageal reflux disease without esophagitis; G47.33 Obstructive sleep apnea (adult) (pediatric); G25.81 Restless legs syndrome; Z95.2 Presence of prosthetic heart valve; Z95.1 Presence of aortocoronary bypass graft; Z96.652 Presence of left artificial knee joint; Z86.2 Personal history of diseases of the blood and blood-forming organs and certain disorders involving the immune mechanism; Z87.891 Personal history of nicotine dependence; Z79.82 Long term (current) use of aspirin
CPT/HCPCS: 36415; 80053; 85025; 96372; 99283; J1100

== ENCOUNTER 2022-02-17 11:56 | Outpatient (CLI) | payer MEDICARE, SELFPAY ==
--- NOTE | ~2022-02-17 | XR_ITS ---
EXAMINATION: XR chest 2V DATE: 02/17/2022 12:18 INDICATION: Chest wall discomfort. TECHNIQUE: Frontal and lateral views of the chest were obtained. COMPARISON: CT abdomen and pelvis 06/02/2020 FINDINGS: A calcified right lung nodule and calcified right hilar lymph nodes are consistent with old granulomatous disease. There is mild atelectasis in the lower lung zones. No pleural effusion or pne umothorax. The heart size is normal. Median sternotomy wires and mediastinal surgical clips are seen, likely from prior coronary artery bypass grafting. IMPRESSION: 1. Mild atelectasis in the lower lung zones. Reviewed, dictated and finalized at location A.
== END 2022-02-17 11:57 | disposition home or self-care (01) ==
PROVIDERS: PCP Internal Medicine; Visit Provider Internal Medicine
DX: R07.89 Other chest pain (principal); R91.8 Other nonspecific abnormal finding of lung field
CPT/HCPCS: 71046

== ENCOUNTER 2022-05-06 10:49 | Outpatient (CLI) | payer MEDICARE, SELFPAY ==
--- NOTE | ~2022-05-06 | XR_ITS ---
XR ribs LT 2V w CXR 2V DATE: 05/06/2022 11:24 INDICATION: Left anterior chest wall pain lateral distortion. No injury. TECHNIQUE: PA and lateral chest. 3 views of the left ribs. COMPARISON: None FINDINGS: Heart size is within normal limits. No hilar or mediastinal enlargement is detected. No pul monary infiltrate or consolidation, pleural effusion or pulmonary vascular congestion or pneumothorax is detected. Diffuse osteopenia. No left rib fracture or bone destruction is detected. Mild left glenohumeral osteoarthritis. Degenerative spurring Particularly the mid and lower thoracic spine. Multilevel degenerative disc disease of the lumbar spi ne. IMPRESSION: Osteopenia Diffuse idiopathic skeletal hyperostosis of the thoracic spine No left rib fracture or bone destruction is evident. Status post sternotomy No active cardiopulmonary disease Reviewed, dictated and finalized at location B.
== END 2022-05-06 10:50 | disposition home or self-care (01) ==
PROVIDERS: PCP Internal Medicine; Visit Provider Internal Medicine
DX: R07.89 Other chest pain (principal); M85.88 Other specified disorders of bone density and structure, other site; M48.14 Ankylosing hyperostosis [Forestier], thoracic region; Z98.890 Other specified postprocedural states
CPT/HCPCS: 71046; 71100

== ENCOUNTER → 2022-05-16 08:15 | Outpatient (CLI) | payer MEDICARE, SELFPAY ==
--- NOTE | ~2022-05-16 | MM_ITS ---
EXAMINATION: MM diagnostic philippe BI w amelia HISTORY: Breast pain TECHNIQUE: Additional 3-D tomosynthesis images of the breasts were performed and synthetic 2-D images were generated. CAD analysis was submitted and interpreted. COMPARISON: Comparison to multiple prior studies sequentially, with oldest reviewed study dated 04/2020. BREAST PARENCHYMAL COMPOSITION: Breast composition is almost entirely fatty FINDINGS: The breasts are stable. There are benign bilateral breast calcifications. No new masses, ca lcifications or architectural distortion to suggest malignancy. IMPRESSION: 1. No mammographic evidence for malignancy in either breast. 2. Routine yearly screening mammogram and regular clinical breast examination are recommended. BI-RADS Category 2: Benign finding(s). Reviewed, dictated and finalized at location A. IMPRESSION: 1. No mammographic evidence for malignancy in either breast. 2. Routine yearly screening mammogram and regular clinical breast examination a re recommended. BI-RADS Category 2: Benign finding(s).
== END ==
PROVIDERS: PCP Internal Medicine; Visit Provider Internal Medicine
DX: N64.4 Mastodynia (principal)
CPT/HCPCS: 77062; 77066; G0279

== ENCOUNTER 2022-06-14 08:54 | Emergency (ER) | payer MEDICARE, SELFPAY ==
--- NOTE | ~2022-06-14 | XR_ITS ---
EXAMINATION: XR hand LT min 3V DATE: 06/14/2022 09:24 INDICATION: Left hand pain. Fall. TECHNIQUE: 3 views of left hand were obtained. COMPARISON: None. FINDINGS: Bone alignment is normal. No fracture. There is diffuse osteopenia. There is moderate osteo arthritis of first carpometacarpal joint. There is mild to moderate osteoarthritis of many of the met acarpophalangeal joints and interphalangeal joints. There is severe osteoarthritis of second and thir d distal interphalangeal joints. IMPRESSION: 1. Polyarticular osteoarthritis. Reviewed, dictated and finalized at location A.
[2022-06-14 09:03] VITALS: BP 139/113; PULSE 91; RESP 16; TEMP 36.6; O2SAT 98
--- NOTE | 2022-06-14 09:49 | ED.FALL ---
HPI - Fall General Chief Complaint: Fall Stated Complaint: Left hand/wrist pain r/t fall Time Seen by Provider: 06/14/22 09:05 History of Present Illness HPI Narrative: 77-year-old female presents the emergency room reports of left wrist pain. Patient states 3 days ago she stepped off a curb and misstep, attempting to catch her self on falling. Patient reports swelling and pain over her left wrist and to the base of her thumb. Pain is worse with range of motion and with touch. Related Data Home Medications Medication Instructions Recorded Confirmed ascorbic acid (vitamin C) 1,000 mg 1 g PO DAILY 08/22/19 06/13/22 tablet aspirin 325 mg tablet 325 mg PO DAILY 08/22/19 06/13/22 ferrous sulfate 325 mg (65 mg 325 mg PO BID 08/22/19 06/13/22 iron) tablet lisinopril 10 mg tablet 10 mg PO DAILY 08/22/19 06/13/22 ropinirole 0.25 mg tablet (Requip) 0.25 mg PO BID 08/22/19 06/13/22 duloxetine 30 mg capsule,delayed 30 mg PO DAILY 04/08/20 06/13/22 release duloxetine 60 mg capsule,delayed 60 mg PO DAILY 04/08/20 06/13/22 release fluticasone propionate 50 1 spray intranasal BID 04/08/20 06/13/22 mcg/actuation nasal spray,suspension (Flonase Allergy Relief) hydrocodone 5 mg-acetaminophen 325 0.5 tablet PO Q8H PRN Pain 04/08/20 06/13/22 mg tablet montelukast 10 mg tablet 10 mg PO DAILY 04/08/20 06/13/22 rosuvastatin 10 mg tablet 10 mg PO DAILY 04/08/20 06/13/22 pantoprazole 40 mg tablet,delayed 40 mg PO BID 06/18/20 06/13/22 release Allergies Allergy/AdvReac Type Severity Reaction Status Date / Time morphine Allergy Unknown Other Verified 06/14/22 09:09 oxycodone Allergy Unknown Other Verified 06/14/22 09:09 Sulfa (Sulfonamide Allergy Unknown Swelling Verified 06/14/22 09:09 Antibiotics) codeine AdvReac Unknown Other Verified 06/14/22 09:09 Review of Systems Review of Systems: CONSTITUTIONAL: Denies fever, chills, or sweats. EYES: Denies visual changes, redness, or discharge. ENT: Denies rhinorrhea, congestion, sore throat, or otalgia. CARDIOVASCULAR: Denies chest pain, palpitations, or edema. RESPIRATORY: Denies cough or dyspnea. GASTROINTESTINAL: Denies abdominal pain, nausea, vomiting, or diarrhea. GENITOURINARY: Denies dysuria or hematuria. SKIN: Denies rash or itching. MUSCULOSKELETAL: Reports left wrist pain NEUROLOGIC: Denies headache, numbness, dizziness, or weakness. PSYCHIATRIC: Denies anxiety or depression. [facility] Past Medical History Medical History Anemia Asthma CAD (coronary artery disease) GERD (gastroesophageal reflux disease) Migraine SARKIS (obstructive sleep apnea) Restless leg syndrome Surgical History Surgical History H/O aortic valve replacement with porcine valve and CABG; 01/08/2019 re-do sternotomy/ tissue rule placement, autologous pericardial patch repair, anterior mitral leaflet, left aortic sinus annulus surgery complicated by pneumonia, renal insufficiency blood loss History of knee replacement Left knee 2012 Family History Family History Father Malignant neoplasm of prostate Mother Hypertension Sibling Hypertension Social History Social History Smoking status: Former smoker Alcohol intake: never Substance use: never Gender identity (if verbalized by the patient): Female Exam Narrative: GENERAL: Well-appearing, well-nourished, no physical limitations, and in no acute distress. HEAD: Normocephalic, atraumatic. EYES: Conjunctivae normal, PERRLA and EOMI. CHEST: Clear to auscultation. No respiratory distress. No wheezes rales or rhonchi. No tenderness. HEART: Regular rate and rhythm. No murmur heard. Normal peripheral pulses. EXTREMITIES: Left wrist: + snuffbox tenderness. Range of motion limited in all planes of movement. T
--- NOTE | 2022-06-14 10:11 | PC.NURSE ---
Pt has a prescription for hydrocodone that she takes every night at home despite her documented allergy to oxycodone
[2022-06-14] MEDS: HYDROcodone/acetaminophen (*CRX) 5-325 MG TABLET 1 TAB PO (10:18)
[2022-06-14 10:21] VITALS: BP 142/81; PULSE 91; RESP 16; O2SAT 98
== END 2022-06-14 10:49 | disposition home or self-care (01) ==
PROVIDERS: Emergency Provider Nurse Practitioner Family; PCP Internal Medicine
DX: S69.92XA Unspecified injury of left wrist, hand and finger(s), initial encounter (principal); J45.909 Unspecified asthma, uncomplicated; I25.10 Atherosclerotic heart disease of native coronary artery without angina pectoris; K21.9 Gastro-esophageal reflux disease without esophagitis; G47.33 Obstructive sleep apnea (adult) (pediatric); G25.81 Restless legs syndrome; Z86.2 Personal history of diseases of the blood and blood-forming organs and certain disorders involving the immune mechanism; Z95.2 Presence of prosthetic heart valve; Z95.1 Presence of aortocoronary bypass graft; Z96.652 Presence of left artificial knee joint; Z87.891 Personal history of nicotine dependence; Z79.82 Long term (current) use of aspirin; M18.9 Osteoarthritis of first carpometacarpal joint, unspecified; M19.042 Primary osteoarthritis, left hand; W10.1XXA Fall (on)(from) sidewalk curb, initial encounter
CPT/HCPCS: 29125; 73130; 99284; A9270

== ENCOUNTER 2022-06-17 14:16 | Outpatient (CLI) | payer MEDICARE, SELFPAY ==
--- NOTE | ~2022-06-17 | XR_ITS ---
XR knee RT 3V DATE: 06/17/2022 14:38 INDICATION: Right knee injury TECHNIQUE: AP, lateral and sunrise views COMPARISON: None FINDINGS: There is moderate loss of height at the medial compartment and periarticular spurring. The re is joint space narrowing and spurring at the patellofemoral joint. No fracture or dislocation, periosteal reaction or bone destruction. No evidence of joint effusion. No radiopaque intraarticular loose body or chondrocalcinosis. IMPRESSION: Moderately prominent osteoarthritis involving medial and patellofemoral compartments Reviewed, dictated and finalized at location B. IMPRESSION: Moderately prominent osteoarthritis involving medial and patellofem oral compartments
--- NOTE | ~2022-06-17 | XR_ITS ---
EXAMINATION: XR ribs RT 2V w CXR 2V INDICATION: Right-sided chest pain TECHNIQUE: A frontal view of the chest and 3 views of the right ribs were obtained. COMPARISON: 05/06/2022 FINDINGS: A calcified nodule of the right lung is consistent with old granulomatous disease. The lung s are free of acute opacities. No pleural effusion or pneumothorax. Median sternotomy wires and media stinal surgical clips are seen, likely from prior coronary artery bypass grafting. There are bridging osteophytes at multiple levels in the spine, consistent with diffuse idiopathic skeletal hyperostosi s (DISH). IMPRESSION: 1. No acute cardiopulmonary abnormality or evidence of displaced rib fracture. Reviewed, dictated and finalized at location A.
== END 2022-06-17 14:17 | disposition home or self-care (01) ==
PROVIDERS: PCP Internal Medicine; Visit Provider Internal Medicine
DX: S29.9XXA Unspecified injury of thorax, initial encounter (principal); S89.91XA Unspecified injury of right lower leg, initial encounter; X58.XXXA Exposure to other specified factors, initial encounter; M17.11 Unilateral primary osteoarthritis, right knee
CPT/HCPCS: 71046; 71100; 73562

== ENCOUNTER 2025-01-30 09:47 | Outpatient (CLI) | payer MEDICARE, SELFPAY ==
--- NOTE | ~2025-01-30 | MM_ITS ---
EXAMINATION: [facility] amelia HISTORY: Screening TECHNIQUE: Craniocaudal and mediolateral oblique 3-D tomosynthesis images were obtained and synthetic 2-D images were generated. CAD analysis was submitted and interpreted. COMPARISON: Comparison to multiple prior studies sequentially, with oldest reviewed study dated 04/2020. BREAST PARENCHYMAL COMPOSITION: Not Dense: The breasts are almost entirely fatty. FINDINGS: There is no evidence of suspicious mass, calcification, or architectural distortion to sugg est malignancy in either breast. There has been no suspicious interval change. IMPRESSION: 1. No mammographic evidence of malignancy. 2. Recommend routine screening mammography in one year. BI-RADS Category 1: Negative Reviewed, dictated and finalized at location B.
--- OUTSIDE RECORDS SUMMARY | 2025-01-30 10:25 | XMS_ITS | Clinical Summary ---
Author Organization [facility] Address [address] [place] [address] Care Team Providers Care Research Intern Name Role Phone Adarsh Hdz MD Primary Care Provider [phone] Source Comments [facility],non-owned Affiliates and Associated Physician Practices is amultiple site organization consisting of ambulatory clinics and hospital sitesin [place], [place], [place] and [place]. This disclosure is being madepursuant to the Care Everywhere program and may not contain all information available regarding this patient. Last updated 18.[facility] Allergies Active Allergy Reactions Criticality Noted Date Comments Codeine 07/26/2006 hallucinations Sulfa Drugs Urticaria,Swelling 07/26/2006 Active Problems Problem Noted Date Diagnosed Date Depressive disorder, not elsewhere classified Immunizations Immunization Administration Dates Next Due INFLUENZA VACCINE, HIGH-DOSE , QUADR. (FLUZONE HIGH-DOSE QUADRIVALENT; 65Y+), 0.7 ML (HD-[id number]) 10/03/2019 Social History Tobacco Use Types Packs/Day Years Used Date Smoking Tobacco: Never Assessed Alcohol Use Standard Drinks/Week Comments Yes 0 (1 standard drink = 0.6 oz pur e alcohol) Comments Unknown Sex and Gender Information Value Date Recorded Sex Assigned at Not on file Legal Sex Female 6:09 PM CDT Gender Identity Not on file Sexual Orientation Not on file Plan of Treatment Health Maintenance Due Date Last Done Comments BONE DENSITY TESTING 1945 MEDICARE AWV 12 MONTHS 1945 HEPATITIS C SCREENING 03/24/1965 DTAP/TDAP/TD VACCINES (1 - Tdap) 1966 PNEUMOCOCCAL VACCINE 50+ (1 of 1 - PCV) 1997 ZOSTER VACCINE (1 of 2) 1997 Respiratory Syncytial Virus (RSV) Vaccine Pt: or over 60 yrs (1 - 1-dose 75+ series) 2022 COVID-19 VACCINE (1 - season) 2024 DEPRESSION SCREENING 10/16/2024 INFLUENZA VACCINE (Season Ended) 2025 10/03/2019, 07/15/2015, 07/26/2012, Additional history exists HEPATITIS B VACCINE Aged Out No longe r eligible based on patient's age to complete this topic HIB VACCINE Aged Out No longer eligi ble based on patient's age to complete this topic HPV VACCINE Aged Out No longer eligi ble based on patient's age to complete this topic MENINGOCOCCAL (Group B) VACCINE SHARED DECISION-MAKING Aged Out No longer eligible based on patient's age to complete this topic MENINGOCOCCAL GROUPS A/C/Y/W VACCINE Aged Out No longer eligible based on patient's age to complete this topic Insurance MEDICARE Care Teams Research Intern Relationship Specialty Start Date End Date Adarsh Hdz MD [address], [place] [id number] PCP - General 01/03/08
--- OUTSIDE RECORDS SUMMARY | 2025-01-30 10:25 | XMS_ITS | Clinical Summary ---
Author Organization [facility] Address [address] [place] [address] Care Team Providers Care Supervisor Final Name Role Phone Lupe Louise MD Primary Care Provider [phone]- [phone] Allergies Active Allergy Reactions Criticality Noted Date Comments Codeine Hallucinations Medium 10/15/2001 HALLUCINATIONS Morphine Hallucinations Medium 06/20/2013 Nsaids (Non-Steroidal Anti-Inflammatory Drug) Other (See comments) Low 09/27/2015 Gastritis, Duodenal ulcer Oxycodone Hallucinations Medium 07/29/2013 Tramadol Itching Low 12/28/2018 Medications ascorbic acid (VITAMIN C) 1,000 mg tabletIndicatio ns:MWFSat Take 1 tablet (1,000 mg total) by mouth daily Active rOPINIRole (REQUIP) 0.5 mg tablet Take 2 tablets (1 mg total) by mouth 2 (two) times a day as needed Active folic acid (FOLVITE) 800 mcg tablet Take 0.5 tablets (400 mcg total) by mouth daily Active DULoxetine DR (CYMBALTA) 30 mg capsule Take 3 capsules (90 mg total) by mouth daily Active DULoxetine DR (CYMBALTA) 60 mg capsule Take 90 mg by mouth daily Active fluticasone propionate (FLONASE) 50 mcg/actuation nasal spray Administer 1 spray into each nostril daily Active lisinopriL (PRINIVIL,ZESTR IL) 40 mg tablet Take 1 tablet (40 mg total) by mouth daily Active montelukast (SINGULAIR) 10 mg tablet Take 1 tablet (10 mg total) by mouth nightly Active naloxone (NARCAN) 0.4 mg/mL injection Acti ve pantoprazole (PROTONIX) 40 mg EC tablet Take 1 tablet (40 mg total) by mouth daily Active albuterol HFA (PROVENTIL HFA,VENTOLIN HFA,PROAIR HFA) 90 mcg/actuation inhaler Inhale 2 puffs every 6 (six) hours as needed for wheezing Active aspirin 81 mg enteric coated tablet Take 1 tablet (81 mg total) by mouth daily 30 tablet 11 3 Active rosuvastatin (CRESTOR) 40 mg tablet Take 1 tablet (40 mg total) by mouth daily 90 tablet 11 4 Active empagliflozin (JARDIANCE) 10 mg tablet Take 1 tablet (10 mg total) by mouth daily 90 tablet 3 4 Active HYDROcodone-silvestre taminophen (NORCO) 5-325 mg per tablet Take 1 tablet by mouth 2 (two) times a day as needed for pain 4 Active amoxicillin 500 mg capsule TAKE 4 CAPSULES BY MOUTH 1 HOUR BEFORE PROCEDURE 4 Active gabapentin (NEURONTIN) 300 mg capsuleIndicati ons:Neuropathic Pain Take 1 capsule (300 mg total) by mouth 2 (two) times a day 180 capsule 3 4 Active Active Problems Problem Noted Date Diagnosed Date Facet arthropathy 04/04/2024 Spondylosis of lumbar region without myelopathy or radiculopathy 04/04/2024 Spinal stenosis of lumbar re gion with neurogenic claudication 01/20/2024 Osseous and sublux stenos of intvrt foramin of lumbar region 01/20/2024 Morbid (severe) obesity due to excess calories 0 06/13/2023 Chronic anticoagulation 09/06/2019 Aftercare following surgery 02/14/2019 Coronary artery disease 12/21/2018 Overview (12/21/2018): Added automatically from request for surgery [id number] Preoperative testing 12/21/2018 Overview (12/21/2018): Added automatically from request for surgery [id number] Iron deficiency anemia 11/12/2018 Acute hemolytic anemia 10/31/2018 Mixed hyperlipidemia 02/28/2017 Overview (09/06/2019): Identified By: Shadia Palma Angina pectoris 02/16/2016 S/P CABG (coronary artery bypass graft) 02/16/20 16 SBE (subacute bacterial endocarditis) prophylaxi s candidate 10/07/2015 Acute pain of right wrist 07/15/2015 Hyperglycemia 12/30/2014 Carpal tunnel syndrome of right wrist 12/24/2014 Restless legs syndrome 02/24/2014 Overview (09/06/2019): Identified By: Tesha Burt Restless legs syndrome 02/24/2014 Overview (08/11/2023): Identified By: Tesha Burt Solitary pulmonary nodule 09/11/2012 Overview (09/06/2019): 6 mm nodule rt. midlung zone--stable on repeated x-rays. Identified By: Ede Benavides Hyperlipidemia 07/16/2012 Overview (08/11/2023): Identified By: Shadia Palma Absence of bladder continence 05/29/2012 Overview (09/06/2019): Identified By: Ede Benavides Cataract 05/29/2012 Overview (09/06/2019): Identified By: Ede Benavides Congenital insufficiency of aortic valve 012 Overview (09/06/2019): surgical replacment on 04/09/12 at the [facility]. Depressive disorder 05/29/2012 Overview (09/06/2019): Identified By: Ede Benavides Obstructive sleep apnea syndrome 05/29/2012 Overview (09/06/2019): recommended to do Auto CPAP 9-13 cwp Identified By: Ede Benavides refuses cpap Low back pain 05/29/2012 Overview (09/06/2019): Identified By: Ede Benavides Esophageal reflux 05/29/2012 Overview (08/11/2023): Identified By: Ede Benavides Absence of bladder continence 05/29/2012 Overview (08/11/2023): Identified By: Ede Benavides Allergic rhinitis 05/29/2012 Overview (08/11/2023): Identified By: Ede Benavides Cataract 05/29/2012 Overview (08/11/2023): Identified By: Ede Benavides Low back pain 05/29/2012 Overview (08/11/2023): Identified By: Ede Benavides Vitamin D deficiency 05/29/2012 Overview (08/11/2023): Identified By: Dottie Bautista Presence of prosthetic heart valve 04/09/2012 Overview (09/06/2019): [facility] valve at [facility] 04/09/12 Arteriosclerosis of coronary artery 04/03/2012 Overview (09/06/2019): S/P AVR and CABG by Dr. Horowitz on 04/09/2012. EVH from XX. S/P AVR and CABG by Dr. Horowitz on 04/09/2012. EVH from XX. Senile nuclear cataract 02/23/2012 Dermatochalasis 02/23/2012 Eyelid lesion 02/23/2012 Floaters 02/23/2012 Aortic valve stenosis 02/21/2012 Overview (09/06/2019): Bicuspic aortic valve S/P AVR and CABG on 04/09/2012. EVH from XX. sees Dr. Coronel S/P AVR and CABG on 04/09/2012. EVH from XX. sees Dr. Coronel Peptic ulcer, site unspecifi ed, unspecified as acute or chronic, without hemorrhage or perforation 02/09/2012 Overview (09/06/2019): duodenal ulcer on EGD in past Identified By: Ede Benavides duodenal ulcer on EGD Preventative health care 05/12/2011 Vitamin D deficiency 05/02/2011 Overview (09/06/2019): Identified By: Dottie Bautista Bicuspid aortic valve 02/05/2010 Left ventricular hypertrophy 02/05/2010 Stress incontinence of urine 01/22/2010 Diverticulosis of colon 11/10/2009 Overview (09/06/2019): sigmoid Identified By: Ede Benavides sigmoid Depressive disorder 04/27/2006 Overview (08/11/2023): Identified By: Ede Benavides Allergic rhinitis 10/16/2000 Overview (09/06/2019): Identified By: Ede Benavides Disorder of skin or subcutaneous tissue 10/16/19 Overview (09/06/2019): LICHEN SCLEROSIS Joint disorder of multiple sites 10/16/2000 Overview (09/06/2019): severe EGD severe missy. of knee. Also seen in fingers on x-ray Identified By: Ede Benavides Identified By: Ede Benavides Essential hypertension 10/16/2000 Resolved Problems Problem Noted Date Diagnosed Date Resolved Date Morbid obesity 05/29/2012 11/30/2023 Overview (09/06/2019): Identified By: Ede Benavides Morbid obesity 05/29/2012 11/30/2023 Overview (08/11/2023): Identified By: Ede Benavides Encounters Date Type Department Care Team Description 01/03/2025 Telephone [facility] [address] [place] [address] Greg Apodaca MD from Last 3 Months Immunizations Immunization Administration Dates Next Due Influenza, Quadrivalent, Spl it, Intramuscular 07/26/2012 Influenza, Quadrivalent, Spl it, Preservative Free, Intramuscular 07/15/2015 Influenza, Trivalent, Adjuva nted, Intramuscular 10/05/2018 Influenza, Trivalent, IM (MDV) 08/02/2011,2008,08/28/2003 Influenza, Unspecified 10/03/2019 Pneumococcal Conjugate 7-Valent 08/07/2014 Pneumococcal Polysaccharide PPV23 08/02/2011,10/2010 Tdap 04/19/2007 Surgical History Surgery Date Site/Laterality Comments CORONARY ARTERY BYPASS GRAFT AORTIC VALVE REPLACEMENT 03/16/2012 - 04/14/2012 REPLACEMENT TOTAL KNEE 07/16/2013 - 08/15/2013 Left TRIGGER FINGER RELEASE Bilateral CARDIAC SURGERY 01/09. redo composite aortic root replacement(tissue) JOINT REPLACEMENT CATARACT EXTRACTION 2021 CARDIAC VALVE REPLACEMENT 04/14/2012 & 01/09/2019 Medical History Medical History Date Comments Hypertension Arthritis Coronary artery disease Prosthetic aortic valve stenosis Motion sickness Sleep apnea GERD (gastroesophageal reflux disease) Depression History of transfusion Anemia Gastric reflux Asthma Osteoarthritis Allergies Migraines Heart disease 2012 Family History Medical History Relation Name Comments Cancer Father Martínez Snider Hearing loss Father Martínez Snider Prostate cancer Father Martínez Snider Alzheimer's disease Mother Gisela Pa Go rp Arthritis Mother Gisela Dinhp Blood Clot Mother Gisela Dinhp Clotting disorder Mother Gisela Dinhp Hearing loss Mother Gisela Dinhp Heart disease Mother Gisela Dinhp Hypertension Mother Gisela Snider Arthritis Other Cancer Other Clotting disorder Other Relation Name Status Comments Father Martínez Snider (Age 71) Mother Gisela Snider (Age 85) Other Sister Alive Social History Tobacco Use Types Packs/Day Years Used Date Smoking Tobacco: Former Cigarettes 0.3 40.2 0 10/16/1975 - 05/16/1982 Smokeless Tobacco: Never Tobacco Cessation:Counseling Given: Not Answered Alcohol Use Standard Drinks/Week Comments Yes 1 (1 standard drink = 0.6 oz pur e alcohol) seldomly AUDIT-C Answer Date Recorded Q1: How often do you have a drink containing alc ohol? Monthly or less 03/25/2024 Q2: How many drinks containi ng alcohol do you have on a typical day when you are drinking? 1 or 2 03/25/2024 Q3: How often do you have si x or more drinks on one occasion? 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 Gender Identity Not on file Sexual Orientation Not on file Obstetrics History Last Filed Vital Signs Vital Sign Reading Time Taken Comments Blood Pressure 149/108 07/30/2024 9:34 AM CDT Pulse 63 07/30/2024 9:34 AM CDT Temperature 36.3 C (97.3 F) 07/30/2024 9:34 AM CDT Respiratory Rate 10 07/30/2024 9:34 AM CDT Oxygen Saturation 98% 07/30/2024 9:34 AM CDT Inhaled Oxygen Concentration - - Weight 83.9 kg (185 lb) 07/30/2024 9:34 AM CDT Height 154.9 cm (5' 1 ) 07/30/2024 9:34 AM CDT Body Mass Index 34.96 07/30/2024 9:34 AM CDT Plan of Treatment Health Maintenance Due Date Last Done Comments Depression Screening 1945 Hepatitis C Screening 1945 Osteoporosis Screening-Bone Density Scan 1945 Hepatitis B Screening 1965 Zoster Vaccine (1 of 2) 1997 Well Visit 65+ 2012 Pneumococcal vaccine 65+ (3 of 3 - PCV20 or PCV21) 08/07/2019 08/07/2014, 08/02/2011, 07/16/2011 Fall Risk Assessment 12/20/2019 12/19/2018 Influenza Vaccine (#1) 2024 9, 07/15/2019, 10/05/2018, Additional history exists DTaP/Tdap/Td Vaccine (3 - Td or Tdap) 06/17/2032 06/17/2022, 04/19/2007 Breast Cancer Screening-Mammogram Discontinued 015, 10/29/2014 Goals Goal Patient Goal Type Associated Problems Recent Progress Patient-Stated? Author CCM Chronic Pain Care Plan Chronic Care Management Improving( 9:04 AM CDT) Yoly Matt, RN Note: Problem: Chronic Pain Goals: 1. Minimize further functional decline 2. Maximize quality of life 3. Control pain Strategies: - Activity/exercise program recommendation - Conservative stepwise pain medicine strategy with multi-disciplinary approach - Recommend healthy lifestyle strategies and compensatory methods as needed Medical Devices Implanted Type Area Multi Disciplined Language Analyst Device Identifier Shelf Expiration Date Model / Serial / Lot Medtronic Inc [id number] 23mm Valve Aortic Latex Free 400 Series - [id number] - [id number] Implanted:Qty: 1 on 01/09/2019 by Den Arroyo MD at [facility] Prosthetic Valve N/A: Aorta Medtronic Inc 10/26/2019 [id number] / [id number] / Description:Aortic Valve Daig Thierry/[employer] [id number] Angio-Seal Vip [place]dek-Plus 6fr .035in 70cm Hemostatic Latex Free - [id number] Implanted:Qty: 1 on 12/28/2018 by Greg Apodaca MD at [facility] Daig [employer]ierry[employer] 08/15/2019 [id number] / / [id number] Vascutek Terumo [id number] Gelweave Valsalva 34mm 26mm 15cm 26mm Aortic Root Graft - [id number] - [id number] Implanted:Qty: 1 on 01/09/2019 by Den Arroyo MD at [facility] N/A: Aorta Vascutek Terumo 07/15/2022 [id number] / [id number] / [id number] [address] MEDICARE ADVANTAGE MEDICARE [facility] TRADITIONAL [address] MEDICARE ADVANTAGE [facility] MEDICARE ADVANTAGE Advance Directives For more information, please contact: [phone] Documents on File Type Date Recorded Patient Sand Cutter Expl anation ADVANCE DIRECTIVE 01/21/2019 7:15 AM POWER OF APPLIANCE REPAIR TECHNICIAN-MEDICAL * Full Code (Latest Code Status on File) Date Activated Date Inactivated Comments 01/18/2019 4:36 PM * Full Code Date Activated Date Inactivated Comments 01/09/2019 2:43 PM 01/17/2019 4:37 PM Care Teams Supervisor Final Relationship Specialty Start Date End Date Lupe Louise MD [address] [place] [place] [address] PCP - General Internal Medicine 10/10/18
--- OUTSIDE RECORDS SUMMARY | 2025-01-30 10:25 | XMS_ITS | Clinical Summary ---
Author Organization [facility] Address [address] [place] [address] Care Team Providers Care Poultry Farm Manager Name Role Phone Lupe Louise MD Primary Care Provider +1- [phone] Allergies Active Allergy Reactions Criticality Noted Date Comments Codeine Hives High 07/26/2006 Sulfa (Sulfonamide Antibiotics) Swelling,Hives High 07/26/2006 Tramadol Itching Low 12/28/2018 Medications atorvastatin (LIPITOR) 40 mg tablet TK 1 T PO QD 2 09/13/2018 Active raNITIdine (ZANTAC) 300 mg tablet TK 1 T PO QHS. 2 09/13/2018 Active rOPINIRole (REQUIP) 0.5 mg tablet TK 2 TS PO 1 TO 3 HOURS BEFORE HS. 2 09/13/2018 Active fluticasone (FLONASE) 50 mcg/spray [place], Suspension USE 2 SPRAYS IN EACH NOSTRIL QD. 2 09/13/2018 Active ascorbic acid, vitamin C, (VITAMIN C) 1,000 mg Tablet Take 1,000 mg by mouth daily. Active ferrous sulfate 325 mg (65 mg iron) tablet Take 325 mg by mouth daily. Active folic acid (FOLVITE) 0.8 mg Tablet Take 800 mcg by mouth daily. Active CALCIUM CARBONATE-VITAM IN D2 ORAL Take by mouth. Active rosuvastatin (CRESTOR) 10 mg tablet 02/15/2020 Active pantoprazole (PROTONIX) 40 mg Tablet, Delayed Release (E.C.) TK 1 T PO 30 MINUTES BEFORE DINNER 03/18/2020 Active HYDROcodone-silvestre taminophen (NORCO) 5-325 mg tablet TK 1 T PO BID PRF PAIN 03/27/2020 Active aspirin (KAM) 325 mg tablet Take 81 mg by mouth. 01/18/2019 Active montelukast (SINGULAIR) 10 mg tablet TK 1 T PO QPM 03/12/2020 Activ e DULoxetine (CYMBALTA) 30 mg Capsule, Delayed Release(E.C.) TK 1 C PO QD. TK WITH 60 MG CAPSULES 03/26/2020 Active DULoxetine (CYMBALTA) 60 mg Capsule, Delayed Release(E.C.) TK 1 C PO D 03/26/2020 Act angeli albuterol HFA 90 mcg inhaler Take 2 Puffs by inhalation. Active naloxone (NARCAN) 0.4 mg/mL Solution Activ e lisinopriL (PRINIVIL) 40 mg tablet Take 40 mg by mouth. Active Active Problems Problem Noted Date Diagnosed Date Iron deficiency anemia 11/12/2018 Acute hemolytic anemia 10/31/2018 Family History Medical History Relation Name Comments Prostate Cancer Father Heart Disease Mother Other Mother Relation Name Status Comments Father Mother Sister Alive Social History Tobacco Use Types Packs/Day Years Used Date Smoking Tobacco: Former Cigarettes Q uit: 10/31/1980 Smokeless Tobacco: Never Alcohol Use Standard Drinks/Week Comments Yes 0 (1 standard drink = 0.6 oz pur e alcohol) Comments No Sex and Gender Information Value Date Recorded Sex Assigned at Not on file 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 Gender Identity Not on file Sexual Orientation Not on file Last Filed Vital Signs Vital Sign Reading Time Taken Comments Blood Pressure 105/69 03/09/2021 3:46 PM CDT Pulse 97 03/09/2021 3:46 PM CDT Temperature 37 C (98.6 F) 03/09/2021 3:46 PM CDT Respiratory Rate - - Oxygen Saturation 98% 03/09/2021 3:46 PM CDT Inhaled Oxygen Concentration - - Weight 86.6 kg (191 lb) 03/09/2021 3:46 PM CDT Height 157.5 cm (5' 2 ) 03/09/2021 3:46 PM CDT Body Mass Index 34.93 03/09/2021 3:46 PM CDT Plan of Treatment Health Maintenance Due Date Last Done Comments ZOSTER VACCINE (1 of 2) 1997 PNEUMOCOCCAL VACCINE 50+ YEA RS (2 of 2 - PCV) 08/07/2015 08/07/2014, 08/02/2011, 07/16/2011 DTAP/TDAP/TD VACCINES (2 - T d or Tdap) 04/19/2017 04/19/2007 RSV VACCINE (60+ or ) (1 - 1-dose 75+ series) 2022 INFLUENZA VACCINE (#1) 2024 5, 07/26/2012, 08/02/2011, Additional history exists OSTEOPOROSIS SCREENING 11/22/2024 11/22/2019 COLORECTAL SCREENING Discontinued 11/14/2016, 11/14/19 17 Colorectal Cancer Screening Discontinued FIT/FOBT Q 1 year Discontinued 12/03/2018 FIT-DNA Q 3 years Discontinued Flex Sig/CT Colonography Q 5 years Discontinued Procedures Procedure Name Priority Date/Time Associated Diagnosis Comments POC OCCULT BLOOD 1 CARD Routine 12/03/2018 Iron deficiency anemia, unspecified iron deficiency anemia type from Last 3 Months or Most Recently Relevant to Health Maintenance Results * POC OCCULT BLOOD 1 CARD (12/03/2018) Stool STOOL SPECIMEN / Unknown Ryland Thomas MD POINT OF CARE TESTING Final Res ult Performing Organization Address City/State/[facility] Co de Phone Number [facility] from Last 3 Months or Most Recently Relevant to Health Maintenance Insurance MEDICARE PART A AND B MEDICARE PART A AND B Care Teams Poultry Farm Manager Relationship Specialty Start Date End Date Lupe Louise MD PCP - General Internal Medicine 10/10/18
--- OUTSIDE RECORDS SUMMARY | 2025-01-30 10:25 | XMS_ITS | Encounter Summary ---
Author Organization [facility] Address [address] [place] [address] Care Team Providers Care Vp Transportation Name Role Phone Lupe Louise MD Primary Care Provider +1- [phone] Reason for Visit * Reason Onset Date Comments PMC Preprocedure 01/11/2024 myChart message Encounter Details Date Type Department Care Team (Late st Contact Info) Description 01/11/2024 Telephone [facility] [address] [facility] [address] [place] [address] Bennett Anderson MD [address] [facility] [address] [facility] [phone] [place], [place] [id number] PMC Preprocedure (myChart message) Social History Tobacco Use Types Packs/Day Years Used Date Smoking Tobacco: Former Cigarettes 0.3 40.2 0 10/16/1975 - 05/16/1982 Smokeless Tobacco: Never Alcohol Use Standard Drinks/Week Comments Yes 1 (1 standard drink = 0.6 oz pur e alcohol) seldomly AUDIT-C Answer Date Recorded Q1: How often do you have a drink containing alc ohol? 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 Author CCM Chronic Pain Care Plan Chronic Care Management Improving( 9:04 AM CDT) Yoly Matt, EDSON Note: Problem: Chronic Pain Goals: 1. Minimize further functional decline 2. Maximize quality of life 3. Control pain Strategies: - Activity/exercise program recommendation - Conservative stepwise pain medicine strategy with multi-disciplinary approach - Recommend healthy lifestyle strategies and compensatory methods as needed documented as of this encounter Visit Diagnoses Not on filedocumented in this encounter Care Teams Vp Transportation Relationship Specialty Start Date End Date Lupe Louise MD [address] [place] [address] PCP - General Internal Medicine 10/10/18 documented as of this encounter
--- OUTSIDE RECORDS SUMMARY | 2025-01-30 10:25 | XMS_ITS | Referral Summary ---
Author Organization [facility] Address [address] [place] [address] Care Team Providers Care Director Special Education Name Role Phone Lupe Louise MD Primary Care Provider +1- [phone] Encounters Date Type Department Care Team Description 01/03/2025 Telephone [facility] Medical Group Cardiology [address] [place] [address] [place] [phone] Greg Apodaca MD from Last 3 Months Allergies Active Allergy Reactions Criticality Noted Date [...] (NARCAN) 0.4 mg/mL injection Acti ve pantoprazole DR (PROTONIX) 40 mg EC tablet Take 1 [...] (12/21/2018): Added automatically from request for surgery [id number] Preoperative testing 12/21/2018 Overview (12/21/2018): Added automatically from request for surgery [id number] Iron deficiency anemia 11/12/2018 Acute hemolytic anemia [...] (09/06/2019): surgical replacment on 04/09/12 at the [facility]. Depressive disorder 05/29/2012 Overview (09/06/2019): Identified By: [...] 04/09/2012 Overview (09/06/2019): [facility] Lokesh's valve at [facility] 04/09/12 Arteriosclerosis of coronary artery 04/03/2012 Overview [...] 11/30/2023 Overview (08/11/2023): Identified By: Ede Benavides Immunizations Immunization Administration Dates Next Due Influenza, Quadrivalent, Spl it, Intramuscular 07/26/2012 Influenza, Quadrivalent, Spl it, Preservative Free, Intramuscular 07/15/2015 Influenza, Trivalent, Adjuva nted, Intramuscular 10/05/2018 Influenza, Trivalent, IM (MDV) 08/02/2011,2008,08/28/2003 Influenza, Unspecified 10/03/2019 Pneumococcal Conjugate 7-Valent 08/07/2014 Pneumococcal Polysaccharide PPV23 08/02/2011,10/2010 Tdap 04/19/2007 Social History Tobacco Use Types Packs/Day Years [...] on file 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 Author CCM Chronic Pain Care Plan Chronic Care Management Improving( 9:04 AM CDT) Yoly Matt RN Note: Problem: Chronic Pain Goals: 1. Minimize further functional decline 2. Maximize quality of life 3. Control pain Strategies: - Activity/exercise program recommendation - Conservative stepwise pain medicine strategy with multi-disciplinary approach - Recommend healthy lifestyle strategies and compensatory methods as needed Medical Devices Implanted Type Area Advertising Solicitor Device Identifier Shelf Expiration Date Model / Serial / Lot Medtronic Inc [id number] 23mm Valve Aortic Latex Free 400 Series - [id number] - [id number] Implanted:Qty: 1 on 01/09/2019 by Den Arroyo MD at [facility] Prosthetic Valve N/A: Aorta Medtronic Inc 10/26/2019 [id number] / [id number] / Description:Aortic Valve Daig Thierry/[employer] [id number] Angio-Seal Vip Bondek-Plus 6fr .035in 70cm Hemostatic Latex Free - [id number] Implanted:Qty: 1 on 12/28/2018 by Greg Apodaca MD at [facility] Daig Thierry[employer] 08/15/2019 [id number] / / [id number] Vascutek Terumo [id number] Gelweave Valsalva 34mm 26mm 15cm 26mm Aortic Root Graft - [id number] - [id number] Implanted:Qty: 1 on 01/09/2019 by Den Arroyo MD at [facility] N/A: Aorta Vascutek Terumo 07/15/2022 [id number] / [id number] / [id number] [address] MEDICARE ADVANTAGE MEDICARE [facility] TRADITIONAL [address] MEDICARE ADVANTAGE [facility] MEDIC[facility] Address: [address] [address] [place] [address] [facility] MEDICARE ADVANTAGE [facility]IC[facility] Address: [address] [address] [place] [address] Advance Directives For more information, please contact: [phone] Documents on File Type Date Recorded Patient Garment Tag Stringer Expl anation ADVANCE DIRECTIVE 01/21/2019 7:15 AM POWER OF CATCHER FILTER TIP-MEDICAL * Full Code (Latest Code Status on File) Date Activated Date Inactivated Comments 01/18/2019 4:36 PM * Full Code Date Activated Date Inactivated Comments 01/09/2019 2:43 PM 01/17/2019 4:37 PM Care Teams Director Special Education Relationship Specialty Start Date End Date Lupe Louise MD [address] [employer] [place] [address] PCP - General Internal Medicine 10/10/18
== END 2025-01-30 09:48 | disposition home or self-care (01) ==
PROVIDERS: PCP Nurse Practitioner; Visit Provider Nurse Practitioner
DX: Z12.31 Encounter for screening mammogram for malignant neoplasm of breast (principal)
CPT/HCPCS: 77063; 77067

== ENCOUNTER 2025-01-31 10:06 | Outpatient (CLI) | payer MEDICARE, SELFPAY ==
--- NOTE | ~2025-01-31 | DEXA_ITS ---
Bone Density Report Name: BREEZY MUHAMMAD Age: 79 Sex: Female Ethnicity: White Date of : 1945 Indication: osteopenia; height loss; Referring Provider: BINTA ZENDEJAS Study: Bone densitometry was performed. Exam Date: January 31, 2025 Accession number: [id number] Bone Density: Region BMD T-score Z-score Classification AP Spine(L1-L4) 0.834 -1.9 0.6 Osteopenia Femoral Neck (Left) 0.615 -2.1 0.1 Osteopenia Total Hip (Left) 0.747 -1.6 0.3 Osteopenia Femoral Neck (Right) 0.619 -2.1 0.1 Osteopenia Total Hip (Right) 0.782 -1.3 0.6 Osteopenia Total Hip Mean 0.764 -1.5 0.5 Osteopenia World Health Organization criteria for BMD impression classify patients as: Normal (T-score at or above -1.0), Osteopenia (T-score between -1.0 and -2.5), or Osteoporosis (T-score at or below -2.5). 10-year Fracture Risk(1): Major Osteoporotic Fracture 13% Hip Fracture 3.6% Reported Risk Factors: [place] (), Neck BMD=0.615, BMI=36.8 (1) FRAX(R) Version 3.08. Fracture probability calculated for an untreated patient. Fracture probability may be lower if the patient has received treatment. Previous Exams: Region Exam Age BMD T-score BMD Change BMD Change Date g/cm2 vs Baseline vs Previous AP Spine (L1-L4) 01/31/2025 79 0.834 -1.9 -0.031 (-3.6%) -0.031 (-3.6%) 11/22/2019 74 0.865 -1.7 Total Hip(Left) 01/31/2025 79 0.747 -1.6 -0.017 (-2.2%) -0.017 (-2.2%) 11/22/2019 74 0.764 -1.5 Total Hip(Right) 01/31/2025 79 0.782 -1.3 -0.033 (-4.1%) -0.033 (-4.1%) 11/22/2019 74 0.815 -1.0 *Denotes significance at 95% confidence level, LSC for AP Spine = 0.022 g/cm2, LSC for Total Hip = 0.027 g/cm2 Clinical Information Provided by Patient: Has used the following medications: Vitamin D, Calcium Patient maximum height was 62 Menopause Age: 42 No regular weight bearing exercise Drinks caffeinated beverages Onset of menses at age 14 Number of children 0 Impression: The patient has low bone mass, based on the Left Femoral Neck T-score. The patient has an estimated ten-year risk of hip fracture of 3.6% and an estimated ten-year risk of major fracture of 13%, based on the WHO FRAX algorithm. The BMD for the AP Spine (L1-L4) decreased, changing by -3.6% since the last DXA exam. The BMD for the Total Hip(Right) decreased, changing by -4.1% since the last DXA exam. Discussion: BONE DENSITY IS LOW AT ONE OR MORE SKELETAL SITES. THE PATIENT'S BMD AND CLINICAL RISK FACTORS CONTRIBUTE TO THIS PATIENT'S INCREASED RISK OF FRACTURE. This patient's lowest T-score is low at one or more skeletal sites. It meets the World Health Organization's (WHO) criteria for ?low bone mass? (T-score between -1.0 and -2.5). The patient's 10-year risk of hip fracture as calculated by FRAX exceeds the threshold where pharmacological therapy is recommended by the National Osteoporosis Foundation (NOF). However, all treatment decisions require clinical judgment and consideration of individual patient factors, including patient preferences, comorbidities, previous drug use, risk factors not captured in the FRAX model (e.g., frailty, falls, vitamin D deficiency, increased bone turnover, interval significant decline in bone density) and possible under or overestimation of fracture risk by FRAX. The patient should follow a healthful lifestyle (good nutrition with adequate calcium and vitamin D, and appropriate weight-bearing exercise). Follow-Up: Consider a repeat BMD and Vertebral Fracture Assessment (VFA) exam in 2 years or sooner if medically necessary, to reassess this patient's status. Reported by: NICOLE on 01/31/2025 10:43:00 AM. Reviewed, dictated and finalized at location [facility] FERNANDEZ
--- OUTSIDE RECORDS SUMMARY | 2025-01-31 10:18 | XMS_ITS | Clinical Summary ---
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
--- OUTSIDE RECORDS SUMMARY | 2025-01-31 10:18 | XMS_ITS | Clinical Summary ---
Author Organization [facility] Address [address] [place] [address] Care Team Providers Care Maintenance Director Name Role Phone Adarsh Hdz MD Primary Care Provider [phone] Source Comments [facility],non-owned Affiliates and Associated Physician Practices is amultiple site organization consisting of ambulatory clinics and hospital sitesin [place], [place], [place] and [place]. This disclosure is being madepursuant to the Care Everywhere program and may not contain all information available regarding this patient. Last updated 18.[facility] Allergies Active Allergy Reactions Criticality [...] complete this topic Insurance MEDICARE Care Teams Maintenance Director Relationship Specialty Start Date End Date Adarsh Hdz MD [address] [place], [place] [id number] PCP - General 01/03/08
--- OUTSIDE RECORDS SUMMARY | 2025-01-31 10:19 | XMS_ITS | Encounter Summary ---
Author Organization [facility] Address [address] [place] [address] Care Team Providers Care Diesel Service Journeyman Name Role Phone Lupe Louise MD Primary Care Provider [phone]- [phone] Reason for Visit * Reason Onset Date Comments PMC Preprocedure 01/11/2024 myChart message Encounter Details Date Type Department Care Team (Late st Contact Info) Description 01/11/2024 Telephone [facility] [place] [facility] [address] [facility] [address] [facility] [address] [place] [address] Bennett Anderson MD [address] [facility] [address] [facility] [phone] [place], [place] [id number] PMC Preprocedure (myChart message) Social History Tobacco [...] on file 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
--- OUTSIDE RECORDS SUMMARY | 2025-01-31 10:19 | XMS_ITS | Referral Summary ---
Author Organization [facility] Address [address] [place] [address] Care Team Providers Care Turning Sander Tender Name Role Phone Lupe Louise MD Primary Care Provider [phone]- [phone] Encounters Date Type Department Care Team Description 01/03/2025 Telephone [facility] Medical Group Cardiology [address] [place] [address] [place] [phone] Greg Apodaca MD from Last 3 [...] (12/21/2018): Added automatically from request for surgery [id number] Preoperative testing 12/21/2018 Overview (12/21/2018): Added automatically from request for surgery [id number] Iron deficiency anemia 11/12/2018 Acute hemolytic anemia [...] (09/06/2019): surgical replacment on 04/09/12 at the [facility]. Depressive disorder 05/29/2012 Overview (09/06/2019): [...] 04/09/2012 Overview (09/06/2019): [facility] 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 Gender Identity Not on file Sexual Orientation [...] as needed Medical Devices Implanted Type Area Senior Pl Sql Developer Device Identifier Shelf Expiration Date Model / Serial / Lot Medtronic Inc [id number] 23mm Valve Aortic Latex Free 400 Series - [id number] - [id number] Implanted:Qty: 1 on 01/09/2019 by Den Arroyo MD at [facility] Prosthetic Valve N/A: Aorta Medtronic Inc 10/26/2019 [id number] / [id number] / Description:Aortic Valve Daig Thierry/[employer] [id number] Angio-Seal Vip Bondek-Plus 6fr .035in 70cm Hemostatic Latex Free - [id number] Implanted:Qty: 1 on 12/28/2018 by Greg Apodaca MD at [facility] Daig [employer] 08/15/2019 [id number] / / [id number] Vascutek Terumo [id number] Gelweave Valsalva 34mm 26mm 15cm 26mm Aortic Root Graft - [id number] - [id number] Implanted:Qty: 1 on 01/09/2019 by Den Arroyo MD at [facility] N/A: Aorta Vascutek Terumo 07/15/2022 [id number] / [id number] / [id number] Insurance [address] MEDICARE ADVANTAGE MEDICARE [facility]AL [facility] Address: [address] [place] [address] MEDICARE ADVANTAGE [facility] MEDICARE Address: [address] [address] [place] [address] [facility] MEDICARE ADVANTAGE [facility] MEDICARE Address: [address] [address] [place] [address] Advance Directives For more information, please contact: [phone] Documents on File Type Date Recorded Patient Marketing Planning Manager Expl anation ADVANCE DIRECTIVE 01/21/2019 7:15 AM POWER OF BAIL BONDSMAN-MEDICAL * Full Code (Latest Code Status on File) Date Activated Date Inactivated Comments 01/18/2019 4:36 PM * Full Code Date Activated Date Inactivated Comments 01/09/2019 2:43 PM 01/17/2019 4:37 PM Care Teams Turning Sander Tender Relationship Specialty Start Date End Date Lupe Louise MD [address] [employer] EXEC[employer] [facility] [place] [address] PCP - General Internal Medicine 10/10/18
--- OUTSIDE RECORDS SUMMARY | 2025-01-31 10:19 | XMS_ITS | Clinical Summary ---
Author Organization [facility] Address [address] [place] [address] Care Team Providers Care Court Collections Officer Name Role Phone Lupe Louise MD Primary Care Provider +1- [phone] Allergies Active Allergy Reactions Criticality Noted Date [...] (12/21/2018): Added automatically from request for surgery [id number] Preoperative testing 12/21/2018 Overview (12/21/2018): Added automatically from request for surgery [id number] Iron deficiency anemia 11/12/2018 Acute hemolytic anemia [...] (09/06/2019): surgical replacment on 04/09/12 at the [facility]. Depressive disorder 05/29/2012 Overview (09/06/2019): Identified By: [...] 04/09/2012 Overview (09/06/2019): [facility] L[facility] valve at 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 Gender Identity Not on file Sexual Orientation [...] as needed Medical Devices Implanted Type Area Serologist Device Identifier Shelf Expiration Date Model / Serial / Lot Medtronic Inc 96171 23mm Valve Aortic Latex Free 400 Series - [id number] - [id number] Implanted:Qty: 1 on 01/09/2019 by Den Arroyo MD at [facility] Prosthetic Valve N/A: Aorta Medtronic Inc 10/26/2019 [id number] / [id number] / Description:Aortic Valve Daig Thierry/[employer] [id number] Angio-Seal Vip Bondek-Plus 6fr .035in 70cm Hemostatic Latex Free - [id number] Implanted:Qty: 1 on 12/28/2018 by Greg Apodaca MD at [facility] Daig Thier[employer] 08/15/2019 [id number] / / [id number] Vascutek Terumo [id number] Gelweave Valsalva 34mm 26mm 15cm 26mm Aortic Root Graft - [id number] - [id number] Implanted:Qty: 1 on 01/09/2019 by Den Arroyo MD at [facility] N/A: Aorta Vascutek Terumo 07/15/2022 [id number] / [id number] / [id number] Insurance [address] MEDICARE ADVANTAGE MEDICARE [facility] TRADITIONAL [address] MEDICARE ADVANTAGE [facility] MEDICARE Address: [address] [address] [place] [address] [facility] MEDICARE ADVANTAGE Advance Directives For more information, please contact: [phone] Documents on File Type Date Recorded Patient Rock Splitter Expl anation ADVANCE DIRECTIVE 01/21/2019 7:15 AM POWER OF WIRE COINER-MEDICAL * Full Code (Latest Code Status on File) Date Activated Date Inactivated Comments 01/18/2019 4:36 PM * Full Code Date Activated Date Inactivated Comments 01/09/2019 2:43 PM 01/17/2019 4:[address] Collections Officer Relationship Specialty Start Date End Date Lupe Louise MD [address] [place] [address] PCP - General Internal Medicine 10/10/18
== END 2025-01-31 10:07 | disposition home or self-care (01) ==
LOC: ANHIMG 10:07
PROVIDERS: PCP Nurse Practitioner; Visit Provider Nurse Practitioner
DX: M85.88 Other specified disorders of bone density and structure, other site (principal); M85.852 Other specified disorders of bone density and structure, left thigh; M85.851 Other specified disorders of bone density and structure, right thigh
CPT/HCPCS: 77080

== ENCOUNTER 2025-02-06 11:12 | Outpatient (CLI) | payer MEDICARE, SELFPAY ==
[2025-02-06 11:44] LABS: Hematocrit 43.7 % (37.0-47.0); Hemoglobin 14.5 g/dL (12.0-15.0); Mean Corpuscular HGB Conc 33.2 g/dl (32-36); Mean Corpuscular Hemoglobin 30.1 pg (26-34); Mean Corpuscular Volume 90.9 fl (80-100); Mean Platelet Volume 9.1 fl (7.4-10.4); Platelet Count Result 363 k/mm3 (150-375); Red Blood Count 4.81 M/mm3 (4.2-5.4); Red Cell Distribution Width 13.2 % (11.5-14.5); White Blood Count 9.6 K/mm3 (4.5-10.0)
[2025-02-06 12:02] LABS: Alanine Aminotransferase 19 U/L (6-35); Albumin Level 4.4 g/dL (3.5-5.1); Alkaline Phosphatase 89 U/L (38-126); Anion Gap 8 mmol/L (4-12); Aspartate Amino Transferase 25 U/L (14-36); Bilirubin,Total 0.8 mg/dL (0.2-1.3); Blood Urea Nitrogen 19 mg/dL (7-17); Calcium 9.6 mg/dL (8.4-10.2); Carbon Dioxide 26 mmol/L (22-30); Chloride 104 mmol/L (98-107); Cholesterol 152 mg/dL (0-200); Estimated Glomerular Filt Rate > 60; Glucose 113 mg/dL (65-110); HDL Direct 55 mg/dL; Potassium 4.7 mmol/L (3.4-5.0); Sodium 138 mmol/L (137-145); Triglycerides 104 mg/dL (<150)
[2025-02-06 12:14] LABS: LDL Cholesterol Direct 68 mg/dL
--- OUTSIDE RECORDS SUMMARY | 2025-02-06 12:48 | XMS_ITS | Encounter Summary ---
Author Organization [facility] Healthcare Address [address] [place] [address] Care Team Providers Care Security Rep Name Role Phone Lupe Louise MD Primary Care Provider +1- [phone] Reason for Visit * Reason Onset Date Comments PMC Preprocedure 01/11/2024 myChart message Encounter Details Date Type Department Care Team (Late st Contact Info) Description 01/11/2024 Telephone [facility] [place] [facility] [address] 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
--- OUTSIDE RECORDS SUMMARY | 2025-02-06 12:48 | XMS_ITS | Clinical Summary ---
Author Organization [facility] Address [address] [place] [address] Care Team Providers Care Retail Salesman Name Role Phone Lupe Louise MD Primary Care Provider +1- [phone] Allergies Active Allergy Reactions Criticality Noted Date [...] (12/21/2018): Added automatically from request for surgery [id number] Preoperative testing 12/21/2018 Overview (12/21/2018): Added automatically from request for surgery [id number] Iron deficiency anemia 11/12/2018 Acute hemolytic anemia [...] surgical replacment on 04/09/[address] [facility]. Depressive disorder 05/29/2012 Overview (09/06/2019): Identified By: [...] Overview (09/06/2019): [facility] 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 Prosthetic Valve N/A: Aorta Medtronic Inc 10/26/2019 [id number] / [id number] / Description:Aortic Valve Daig Thierry/[employer] [id number] Angio-Seal Vip Bondek-Plus 6fr .035in 70cm Hemostatic Latex Free - [id number] Implanted:Qty: 1 on 12/28/2018 by Greg Apodaca MD at [facility] Daig Thier[employer] 08/15/2019 [id number] / / [id number] Vascutek Terumo [id number] Gelweave Valsalva 34mm 26mm 15cm 26mm Aortic Root Graft - [id number] - [id number] Implanted:Qty: 1 on 01/09/2019 by Den Arroyo MD at [facility] N/A: Aorta Vascutek Terumo 07/15/2022 [id number] / [id number] / [id number] Insurance [address] MEDICARE ADVANTAGE MEDICARE [facility] TRADITIONAL [address] MEDICARE ADVANTAGE [facility] MEDICARE ADVANTAGE Advance Directives For more information, please contact: [phone] Documents on File Type Date Recorded Patient Integrated Circuit Design Engineer Expl anation ADVANCE DIRECTIVE 01/21/2019 7:15 AM POWER OF CANVAS CUTTER-MEDICAL * Full Code (Latest Code Status on File) Date Activated Date Inactivated Comments 01/18/2019 4:36 PM * Full Code Date Activated Date Inactivated Comments 01/09/2019 2:43 PM 01/17/2019 4:37 PM Care Teams Retail Salesman Relationship Specialty Start Date End Date Lupe Louise MD [address] [place] [address] PCP - General Internal Medicine 10/10/18
--- OUTSIDE RECORDS SUMMARY | 2025-02-06 12:48 | XMS_ITS | Clinical Summary ---
Author Organization [facility] Address [address] [place] [address] Care Team Providers Care Manager Planning Name Role Phone Adarsh Hdz MD Primary Care Provider [phone] Source Comments [facility],non-owned Affiliates and Associated Physician Practices is amultiple site organization consisting of ambulatory clinics and hospital sitesin [place], [place], [place] and [place]. This disclosure is being madepursuant to the Care Everywhere program and may not contain all information available regarding this patient. Last updated 18.[facility] Allergies Active Allergy Reactions Criticality Noted Date [...] complete this topic Insurance MEDICARE Care Teams Manager Planning Relationship Specialty Start Date End Date Adarsh Hdz MD [address] [place], [place] [id number] PCP - General 01/03/08
--- OUTSIDE RECORDS SUMMARY | 2025-02-06 12:48 | XMS_ITS | Referral Summary ---
Author Organization [facility] Address [address] [place] [id number] Care Team Providers Care Plastic Mixer Name Role Phone Lupe Louise MD Primary Care Provider +1- [phone] Encounters Date Type Department Care Team Description 01/03/2025 Telephone [facility] Cardiology [address] [place] [address] [place] [id number] Greg Apodaca MD from Last 3 [...] (12/21/2018): Added automatically from request for surgery [id number] Preoperative testing 12/21/2018 Overview (12/21/2018): Added automatically from request for surgery [id number] Iron deficiency anemia 11/12/2018 Acute hemolytic anemia [...] (09/06/2019): surgical replacment on 04/09/12 at the [facility]. Depressive disorder 05/29/2012 Overview (09/06/2019): [...] 04/09/2012 Overview (09/06/2019): [facility] valve at 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 Prosthetic Valve N/A: Aorta Med[employer] Inc 10/26/2019 [id number] / [id number] / Description:Aortic Valve Daig [employer] [id number] Angio-Seal Vip [place]-Plus 6fr .035in 70cm Hemostatic Latex Free - [id number] Implanted:Qty: 1 on 12/28/2018 by Greg Apodaca MD at [facility] [employer]ig [employer]ierry[employer] 08/15/2019 [id number] / / [id number] Vascutek Terumo [id number] Gelweave Valsalva 34mm 26mm 15cm 26mm Aortic Root Graft - [id number] - [id number] Implanted:Qty: 1 on 01/09/2019 by Den Arroyo MD at [facility] N/A: Aorta Vascutek Terumo 07/15/2022 [id number] / [id number] / [id number] Insurance [address] MEDICARE ADVANTAGE MEDICARE [facility] [address] MEDICARE ADVANTAGE [facility] MEDICARE ADVANTAGE Advance Directives For more information, please contact: [phone] Documents on File Type Date Recorded Patient Cook Candy Expl anation ADVANCE DIRECTIVE 01/21/2019 7:15 AM POWER OF MAINFRAME APPLICATIONS DEVELOPER-MEDICAL * Full Code (Latest Code Status on File) Date Activated Date Inactivated Comments 01/18/2019 4:36 PM * Full Code Date Activated Date Inactivated Comments 01/09/2019 2:43 PM 01/17/2019 4:37 PM Care Teams Plastic Mixer Relationship Specialty Start Date End Date Lupe Louise MD [employer] [facility] [place] [address] PCP - General Internal Medicine 10/10/18
--- OUTSIDE RECORDS SUMMARY | 2025-02-06 12:48 | XMS_ITS | Clinical Summary ---
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
[2025-02-06 13:00] LABS: Vitamin D 25 Hydroxy 42.9 ng/mL
[2025-02-06 13:58] LABS: Hemoglobin A1C 6.1 % (<5.7)
== END 2025-02-06 11:13 | disposition home or self-care (01) ==
PROVIDERS: PCP Nurse Practitioner; Visit Provider Nurse Practitioner
DX: E55.9 Vitamin D deficiency, unspecified (principal); I38 Endocarditis, valve unspecified; E03.9 Hypothyroidism, unspecified; R73.01 Impaired fasting glucose; E78.5 Hyperlipidemia, unspecified
CPT/HCPCS: 36415; 80053; 80061; 82306; 83036; 84443; 85027